=== PATIENT | male | born 2000 | race Caucasian/White ===

== ENCOUNTER 2020-06-15 14:35 | Outpatient (REF) | payer OTHER, SELFPAY ==
[2020-06-15 15:06] LABS: MANUAL DIFF FLAG NO
[2020-06-15 15:15] LABS: Basophils Percent Auto 0.3 % (0-2); Eosinophils Absolute Auto 0.1 X10*3/uL (0.0-0.4); Eosinophils Percent Auto 1.3 % (0-4); Hematocrit 29.4 % (42-52); Hemoglobin 7.8 g/dl (14.0-18.0); Imm Gran Abs Auto 0.04 X10*3/uL (0.00-0.03); Imm Gran Pct Auto 0.4 % (0.0-0.4); Lymphocytes Absolute Auto 2.5 X10*3/uL (1.2-4.9); Lymphocytes Percent Auto 26.1 % (20-40); Mean Corpuscular HGB Conc 26.5 g/dl (31.0-36.0); Mean Corpuscular Hemoglobin 18.8 pg (27.0-33.0); Mean Platelet Volume 9.7 fL (9.4-12.4); Monocytes Absolute Auto 0.8 X10*3/uL (0.1-1.2); Monocytes Percent Auto 8.2 % (2-11); Neutrophils Absolute Auto 6.1 X10*3/uL (2.0-8.3); Neutrophils Percent Auto 63.7 % (45-73); Platelet Count 404 X10*3/uL (160-400); Red Blood Count 4.14 X10*6/uL (4.60-5.80); Red Cell Distribution Width 20.4 % (11.0-16.0); White Blood Count 9.5 X10*3/uL (4.8-10.8)
[2020-06-15 15:51] LABS: Alanine Aminotransferase 20 U/L (0-40); Albumin Level 4.1 g/dL (3.5-5.0); Alkaline Phosphatase 99 U/L (39-117); Anion Gap 11 (12-20); Aspartate Amino Transferase 16 U/L (5-37); Bilirubin Total 0.5 mg/dL (0.0-1.0); Blood Urea Nitrogen 7 mg/dL (9-16); C Reactive Protein 0.58 mg/dL (< or = 0.50); Calcium 9.2 mg/dL (8.4-10.2); Carbon Dioxide 26 mmol/L (22-29); Chloride 108 mmol/L (96-108); Estimated Glomerular Filt Rate > 60; Glucose Random 92 mg/dL (60-115); Potassium 4.4 mmol/L (3.3-5.1); Sodium 141 mmol/L (135-145); Total Protein 7.2 g/dL (6.5-8.0)
[2020-06-15 16:17] LABS: Erythrocyte Sedimentation Rate 14 MM/HR (0-15)
[2020-06-15 16:19] LABS: Vitamin B12 615 pg/mL (200-900)
[2020-06-15 16:20] LABS: Vitamin D 25-OH Total 18.4 ng/mL (>30)
[2020-06-15 16:47] LABS: Folate 7.9 ng/mL (> or = 4.0)
[2020-06-15 16:56] LABS: Ferritin < 1 ng/mL (20-250)
[2020-06-16 04:29] LABS: HBc Num1 0.09 S/CO (0.00-0.79); Hepatitis B Core Antibody Nonreactive (Nonreactive); ~HepC Num1 0.07 S/CO (0.00-0.79); ~Hepatitis C Antibody Nonreactive (Nonreactive)
[2020-06-16 04:40] LABS: HBS Num1 1.02 mIU/mL (0-7.99); HBsAGNum1 0.31 S/CO (0.00-0.99); Hepatitis B Surface Antigen Negative (Negative); ~Hepatitis B Surface Antibody NONREACTIVE (Nonreactive)
[2020-06-17 08:20] LABS: Hepatitis A Antibody IgM 0.26 Index (0-0.79); ~Hepatitis A Antibody IgM Nonreactive (Nonreactive)
[2020-06-18 00:07] LABS: TS Negative Control Passed; TS Panel A 1; TS Panel B 0; TS Positive Control Passed; TSpotTB Negative (SeeBelow)
[2020-06-18 12:32] LABS: Vitamin B6 5.3 ng/mL (2.1-21.7)
[2020-06-18 18:32] LABS: Vitamin C 0.7 mg/dL (0.2-2.1)
[2020-06-19 11:41] LABS: Nicotinamide <20 ng/mL; Vit B3 - Nicotinic Acid <20 ng/mL
[2020-06-19 16:57] LABS: Alpha-Tocopherol 12.3 mg/L (5.7-19.9); Beta-Gamma Tocopherol 2.8 mg/L (<=4.3)
[2020-06-19 23:48] LABS: Vitamin A 30 mcg/dL (26-72)
[2020-06-20 16:37] LABS: Vitamin B5 (Pantothenic Acid) <40 ng/mL (<275)
== END 2020-06-15 14:36 | disposition home or self-care (01) ==
LOC: HO.LAB 14:35
PROVIDERS: Visit Provider Internal Medicine Gastroenterology
DX: K52.9 Noninfective gastroenteritis and colitis, unspecified (principal)
CPT/HCPCS: 36415; 80053; 82180; 82306; 82607; 82728; 82746; 84207; 84446; 84590; 84591; 85025; 85652; 86140; 86481; 86704; 86706; 86709; 86803; 87340

== ENCOUNTER 2020-06-17 14:03 | Outpatient (REF) | payer OTHER, SELFPAY | END 2020-06-17 14:04 | disposition home or self-care (01) | LOC: HO.MDS 14:03 | PROVIDERS: Visit Provider Internal Medicine Gastroenterology | DX: D50.9 Iron deficiency anemia, unspecified (principal) | CPT/HCPCS: 96365; 96375; J2916 ==

== ENCOUNTER 2020-06-22 13:46 | Outpatient (REF) | payer OTHER, SELFPAY | END 2020-06-22 13:47 | disposition home or self-care (01) | LOC: HO.MDS 13:46 | PROVIDERS: Visit Provider Internal Medicine Gastroenterology | DX: D50.9 Iron deficiency anemia, unspecified (principal) | CPT/HCPCS: 96365; 96375; J2916 ==

== ENCOUNTER 2020-06-29 13:30 | Outpatient (REF) | payer OTHER, SELFPAY | END 2020-06-29 15:50 | disposition home or self-care (01) | LOC: HO.MDS 13:30 | PROVIDERS: Visit Provider Internal Medicine Gastroenterology | DX: D50.9 Iron deficiency anemia, unspecified (principal) | CPT/HCPCS: 96365; J2916; Q0163 ==

== ENCOUNTER 2020-07-06 12:27 | Outpatient (REF) | payer OTHER, SELFPAY ==
[2020-07-06 13:33] LABS: MANUAL DIFF FLAG NO
[2020-07-06 13:52] LABS: Basophils Percent Auto 0.5 % (0-2); C Reactive Protein 0.15 mg/dL (< or = 0.50); Eosinophils Absolute Auto 0.2 X10*3/uL (0.0-0.4); Eosinophils Percent Auto 2.1 % (0-4); Hematocrit 38.7 % (42-52); Hemoglobin 10.5 g/dl (14.0-18.0); Imm Gran Abs Auto 0.02 X10*3/uL (0.00-0.03); Imm Gran Pct Auto 0.3 % (0.0-0.4); Lymphocytes Percent Auto 26.3 % (20-40); Mean Corpuscular HGB Conc 27.1 g/dl (31.0-36.0); Mean Corpuscular Hemoglobin 21.3 pg (27.0-33.0); Mean Corpuscular Volume 78.5 fL (80-98); Mean Platelet Volume 10.2 fL (9.4-12.4); Monocytes Absolute Auto 0.7 X10*3/uL (0.1-1.2); Monocytes Percent Auto 9.2 % (2-11); Neutrophils Absolute Auto 4.7 X10*3/uL (2.0-8.3); Neutrophils Percent Auto 61.6 % (45-73); Platelet Count 395 X10*3/uL (160-400); Red Blood Count 4.93 X10*6/uL (4.60-5.80); Red Cell Distribution Width 26.7 % (11.0-16.0); White Blood Count 7.6 X10*3/uL (4.8-10.8)
[2020-07-06 14:16] LABS: Ferritin 87 ng/mL (20-250)
== END 2020-07-06 12:28 | disposition home or self-care (01) ==
LOC: HO.LAB 12:27
PROVIDERS: Visit Provider Internal Medicine Gastroenterology
DX: K52.9 Noninfective gastroenteritis and colitis, unspecified (principal)
CPT/HCPCS: 36415; 82728; 85025; 86140

== ENCOUNTER 2020-07-20 15:40 | Outpatient (REF) | payer OTHER, SELFPAY | END 2020-07-20 15:41 | disposition home or self-care (01) | LOC: HO.MDS 15:40 | PROVIDERS: Visit Provider Internal Medicine Gastroenterology | DX: D50.9 Iron deficiency anemia, unspecified (principal) | CPT/HCPCS: 96365; J2916 ==

== ENCOUNTER 2020-08-03 14:14 | Outpatient (REF) | payer OTHER, SELFPAY | END 2020-08-03 14:15 | disposition home or self-care (01) | LOC: HO.MDS 14:14 | PROVIDERS: Visit Provider Internal Medicine Gastroenterology | DX: D50.9 Iron deficiency anemia, unspecified (principal) | CPT/HCPCS: 96365; J2916 ==

== ENCOUNTER 2020-11-25 14:10 | Outpatient (REF) | payer OTHER, SELFPAY ==
[2020-11-25 14:45] LABS: Hematocrit 37.2 % (42-52); Hemoglobin 11.5 g/dl (14.0-18.0); Mean Corpuscular HGB Conc 30.9 g/dl (31.0-36.0); Mean Corpuscular Hemoglobin 24.8 pg (27.0-33.0); Mean Corpuscular Volume 80.2 fL (80-98); Mean Platelet Volume 10.6 fL (9.4-12.4); Platelet Count 356 X10*3/uL (160-400); Red Blood Count 4.64 X10*6/uL (4.60-5.80)
[2020-11-29 11:41] LABS: Testosterone, Total 18 ng/dL (250-1100)
== END 2020-11-25 14:11 | disposition home or self-care (01) ==
LOC: HO.LAB 14:10
PROVIDERS: Visit Provider Internal Medicine Endocrinology, Diabetes & Metabolism
DX: E29.1 Testicular hypofunction (principal); D64.9 Anemia, unspecified
CPT/HCPCS: 36415; 84403; 85027

== ENCOUNTER 2021-09-22 16:58 | Outpatient (REF) | payer OTHER, SELFPAY ==
[2021-09-22 17:51] LABS: Hematocrit 26.3 % (42.0-52.0); Mean Corpuscular HGB Conc 25.1 g/dl (31.0-36.0); Mean Corpuscular Hemoglobin 16.3 pg (27.0-33.0); Mean Platelet Volume 9.9 fL (9.4-12.4); Platelet Count 428 X10*3/uL (160-400); Red Blood Count 4.05 X10*6/uL (4.60-5.80); Red Cell Distribution Width 19.8 % (11.0-16.0); White Blood Count 9.7 X10*3/uL (4.8-10.8)
[2021-09-22 18:24] LABS: Thyroid Stimulating Hormone 0.75 uIU/mL (0.32-4.0)
[2021-09-22 18:50] LABS: Hemoglobin 6.6 g/dl (14.0-18.0); Mean Corpuscular Volume 64.9 fL (80.0-98.0)
[2021-09-28 02:22] LABS: Testosterone, Free 244.4 pg/mL (35.0-155.0); Testosterone, Total 902 ng/dL (250-1100)
== END 2021-09-22 16:59 | disposition home or self-care (01) ==
LOC: HO.LAB 16:58
PROVIDERS: Visit Provider Internal Medicine Endocrinology, Diabetes & Metabolism
DX: E29.1 Testicular hypofunction (principal)
CPT/HCPCS: 36415; 84402; 84403; 84443; 85027

== ENCOUNTER 2021-09-27 14:12 | Emergency (ER) | payer OTHER, SELFPAY ==
[2021-09-27] VITALS (10 sets, daily range): BP systolic 131–156; BP diastolic 54–93; PULSE 88–104; RESP 15–19; TEMP 36.9–37.2; O2SAT 98–100; BMI 28.1
--- NOTE | ~2021-09-27 | CT_ITS ---
EXAMINATION: CT ABDOMEN AND PELVIS WITHOUT CONTRAST CLINICAL INFORMATION: GI bleed COMPARISON: None TECHNIQUE: Multidetector volumetric imaging was performed from the superior aspect of the liver through the pubic symphysis. Sagittal and coronal reformatted images were obtained on the technologist's workstation. This CT examination was performed using dose optimization techniques as appropriate, variously including the following: *Automated exposure control *Adjustment of mA and/or kV according to patient size (this includes techniques or standardized protocols for targeted exams where dose is matched to indication/reason for exam; i.e. extremities or head) *Use of iterative reconstruction technique DLP: 627 mGy-cm FINDINGS: LUNG BASES: The visualized lung bases are unremarkable. LIVER, GALLBLADDER, AND BILIARY TREE: The liver is normal in size, shape, and attenuation. No focal hepatic lesion or biliary ductal dilatation is present. The gallbladder is contracted with no evidence of radiopaque gallstones, gallbladder wall thickening, or obvious pericholecystic inflammatory changes. PANCREAS: Unremarkable. SPLEEN: Unremarkable. ADRENAL GLANDS: Unremarkable. KIDNEYS AND URETERS: The kidneys are normal in size, shape, and attenuation. No hydronephrosis, hydroureter, or calculi seen. No perinephric stranding. BLADDER: Unremarkable. GASTROINTESTINAL TRACT: The stomach is unremarkable. Normal caliber of the small bowel. No obstruction. Mild wall thickening throughout the colon is noted, greatest at the descending colon. No significant adjacent inflammation. Prominent lymph nodes are seen throughout the mesentery. ABDOMINAL WALL: No significant hernia is appreciated. LYMPH NODES: No retroperitoneal lymphadenopathy. Prominent mesenteric lymph nodes throughout. VASCULAR: Unremarkable. PELVIC VISCERA: The prostate and seminal vesicles are unremarkable. OSSEOUS STRUCTURES: No acute or suspicious osseous abnormality. CT/CT abdomen pelvis wo con IMPRESSION: Colonic wall thickening noted fairly diffusely but greatest at the descending colon. This is suggestive of colitis, with prominent mesenteric lymph nodes seen throughout. This could be infectious or inflammatory. Fleischner guidelines were followed.
[2021-09-27 17:10] LABS: Basophils Absolute Auto 0.1 X10*3/uL (0.0-0.2); Basophils Percent Auto 0.6 % (0-2); Eosinophils Absolute Auto 0.5 X10*3/uL (0.0-0.4); Hematocrit 25.1 % (42.0-52.0); Imm Gran Abs Auto 0.03 X10*3/uL (0.00-0.03); Imm Gran Pct Auto 0.3 % (0.0-0.4); Lymphocytes Absolute Auto 1.8 X10*3/uL (1.2-4.9); Mean Corpuscular HGB Conc 24.7 g/dl (31.0-36.0); Mean Platelet Volume 9.3 fL (9.4-12.4); Monocytes Absolute Auto 1.1 X10*3/uL (0.1-1.2); Monocytes Percent Auto 12.3 % (2-11); Neutrophils Absolute Auto 5.5 x10*3/uL (2.0-8.3); Neutrophils Percent Auto 61.8 % (45-73); Platelet Count 405 X10*3/uL (160-400); Red Blood Count 3.87 X10*6/uL (4.60-5.80); Red Cell Distribution Width 19.6 % (11.0-16.0)
[2021-09-27 17:11] LABS: MANUAL DIFF FLAG NO
[2021-09-27 17:20] LABS: Mean Corpuscular Volume 64.9 fL (80.0-98.0)
[2021-09-27 17:23] LABS: Hemoglobin 6.2 g/dl (14.0-18.0)
[2021-09-27 17:32] LABS: COVID-19 Test Negative (Negative); IDNOW Serial# 16C4AD1C
[2021-09-27 17:35] LABS: Alanine Aminotransferase 9 U/L (0-40); Albumin Level 4.3 g/dL (3.5-5.0); Alkaline Phosphatase 93 U/L (39-117); Anion Gap 14 (12-20); Aspartate Amino Transferase 12 U/L (5-37); Bilirubin Total 0.3 mg/dL (0.0-1.0); Blood Urea Nitrogen 7 mg/dL (9-16); Calcium 9.1 mg/dL (8.4-10.2); Carbon Dioxide 24 mmol/L (22-29); Chloride 106 mmol/L (96-108); Creatinine Clr Calc Pharmacy 128.4; Estimated Glomerular Filt Rate > 60; Glucose Random 103 mg/dL (60-115); Potassium 4.3 mmol/L (3.3-5.1); Sodium 140 mmol/L (135-145); Total Protein 7.4 g/dL (6.5-8.0)
--- NOTE | 2021-09-27 17:55 | PC.NURSE ---
pt not in wr again when called. he had left the ed several times prior to triage.
--- NOTE | 2021-09-27 18:13 | ED.RECABL ---
HPI - Recheck/Abnormal Lab/Rx General Chief Complaint: Recheck/Abnormal Lab/Rx Stated Complaint: blood transfusion Time Seen by Provider: 09/28/21 01:22 Source: patient Mode of arrival: ambulatory Limitations: no limitations History of Present Illness HPI narrative: 21-year-old male with past medical history of anemia with iron infusions, and ulcerative colitis presents with H&H is 6.2/25.1. He presents from Dr. Morfin' office with instructions from Dr. Fritz for 2 units of packed red blood cells and CT of abdomen with oral contrast. Patient is pale, states he gets short of breath when walking up stairs, but otherwise feels fine. complaint: abnormal lab Initial visit for: other (Anemia) Returns today for: called because of abnormal lab/test Symptoms since prior visit: no new symptoms Context: called for abnormal lab result Associated symptoms: shortness of breath (On exertion) Related Data Home Medications Medication Instructions Recorded Confirmed testosterone cypionate 200 mg/mL 200 mg IM Q3W 09/27/21 intramuscular oil Previous Rx's Medication Instructions Recorded Apriso 0.375 gram capsule,extended 1.5 g PO QAM #112 caps 09/22/21 release (mesalamine) Allergies Allergy/AdvReac Type Severity Reaction Status Date / Time peas Allergy Mild hives Uncoded 09/27/21 13:54 Review of Systems Review of Systems: Constitutional: No Fever, No Chills, pallor ENT/Mouth: No Ear Pain, No Hoarseness, No sore throat Eyes: No Eye Pain, No Swelling, No Redness, No Foreign Body Cardiovascular: No Chest Pain, positive SOB on exertion Respiratory: No Cough, No Dyspnea Gastrointestinal: No Nausea, No Vomiting, No Diarrhea, No abdominal Pain Genitourinary: No Dysuria, No Hematuria Musculoskeletal: No joint pain, No Myalgias, No Joint Swelling Skin: No Skin lacerations, No rash Neuro: No Weakness, No Numbness, No Paresthesias, No Loss of Consciousness, No Dizziness, No Headache Psych: No Anxiety/Panic, No Depression Heme/Lymph: no easy bruising, no Lymphadenopathy Endocrine: No Polyuria, No Polydipsia Yes all other systems are reviewed and are negative PMFSH Past Medical History Attestation statement: The following information was validated with the patient. Source: old records reviewed Family History Family History Father HTN (hypertension) Social History Social History Alcohol intake: current Alcohol intake frequency: holidays/special occasions only Patient Tobacco Use Status: Never used Tobacco Smoked in Last 30 Days: No Use of substances other than those prescribed or required for medical reasons: No Advance Directives: No Advance Directives Information Provided: No Physical Exam Vital Signs: Vital Signs: Last Vital Signs Temp 99.3 F 09/28/21 00:47 Pulse 95 09/28/21 00:47 Resp 26 H 09/28/21 00:47 BP 131/60 09/28/21 00:47 Pulse Ox 98 09/28/21 00:47 O2 Del Method 09/28/21 00:47 BMI result Body Mass Index 28.1 Appearance: Alert. Oriented X3. No acute distress. Pallor. Eyes: Pupils equal, round and reactive to light. Sclera nonicteric. Pallor. ENT: Pharynx normal. Neck: Normal inspection. Neck supple. CVS: Tachycardic heart rate and rhythm. Apical pulses of the pulses to extremities. Respiratory: No respiratory distress. Breath sounds normal. Abdomen: Soft and nontender. Skin: Skin warm and dry. Normal skin color. Normal skin turgor. Extremities: No lower extremity edema. Gait well-balanced well coordinated. Neuro: No motor deficit. No sensory deficit. Cranial nerves 2-12 intact. Course Course Course Narrative: 21-year-old male presents with history of colitis, anemia with IV infusions, presents from Dr. Fritz is a office for H&H of .04/23.. Patient has a history of ulcerative colitis, has close follow-up with Gastroenterology. Dr. Fritz contacted this emergency department to update provider that he would like CT abdomen with p.o. contrast and 2 units packed red blood. At the time of presentation, patient is alert oriented x4, pale, tachycardic, stable with a blood pressure 156/78, pulse is 100, respiration 18 even and unlabored, temperature 98.9 degrees, and clear lung sounds with 99% on room air. Will follow with Gastroenterology's plan. Blood consent signed by patient with this [facility]. Order for 2 units complete. 20:00 patient has not received blood yet. Patient removed his blood band which delayed the process. Multiple discussions with RN and patient regarding plan of care. 21:03 CT scan complete. Minimal amounts of p.o. oral contrast ingested by the patient. 00:54 2nd unit infusing. Patient has no complaints at this time. Alert oriented x4. Even unlabored respirations. Afebrile. CT scan indicates colitis suspected to be infectious versus inflammatory. Based on patient's past medical history, consult with Dr. Fritz, I feel this is more inflammatory. Antibiotics not indicated at this time. 01:27 transfusion complete. No indication of adverse reaction. Patient discharged home. Verbalized understanding of signs and symptoms indicating need for emergent intervention. MDM - Recheck/Abnormal Lab/Rx MDM Narrative Medical decision making narrative: Anemia Medical Records Attestation: I reviewed the patient's medical records. Lab Data Attestation: I reviewed the patient's lab results. Result diagrams: 09/27/21 17:05 09/27/21 17:05 Labs: Lab Results 09/27/21 09/27/21 09/27/21 Range/Units 17:05 17:05 17:05 WBC 9.0 (4.8-10.8) X10*3/uL RBC 3.87 L (4.60-5.80) X10*6/uL Hgb 6.2 L* (14.0-18.0) g/dl Hct 25.1 L (42.0-52.0) % MCV 64.9 L (80.0-98.0) fL MCH 16.0 L (27.0-33.0) pg MCHC 24.7 L (31.0-36.0) g/dl RDW 19.6 H (11.0-16.0) % Plt Count 405 H (160-400) X10*3/uL MPV 9.3 L (9.4-12.4) fL Immature Gran % (Auto) 0.3 (0.0-0.4) % Neut % (Auto) 61.8 (45-73) % Lymph % (Auto) 20.0 (20-40) % [place] % (Auto) 12.3 H (2-11) % Eos % (Auto) 5.0 H (0-4) % Baso % (Auto) 0.6 (0-2) % Lymph # (Auto) 1.8 (1.2-4.9) X10*3/uL [place] # (Auto) 1.1 (0.1-1.2) X10*3/uL Eos # (Auto) 0.5 H (0.0-0.4) X10*3/uL Baso # (Auto) 0.1 (0.0-0.2) X10*3/uL Abs Immat Gran (auto) 0.03 (0.00-0.03) X10*3/uL Absolute Neuts (auto) 5.5 (2.0-8.3) x10*3/uL Absolute Nucleated RBC 0.000 (0.0-0.012) X10*3/uL Nucleated RBC % (auto) 0.0 (0.0-0.2) /100WBC Sodium 140 (135-145) mmol/L Potassium 4.3 (3.3-5.1) mmol/L Chloride 106 (96-108) mmol/L Carbon Dioxide 24 (22-29) mmol/L Anion Gap 14 (12-20) BUN 7 L (9-16) mg/dL Creatinine 0.96 (0.5-1.4) mg/dL Estim Creat Clear Calc 128.4 Estimated GFR > 60 Random Glucose 103 (60-115) mg/dL Calcium 9.1 (8.4-10.2) mg/dL Total Bilirubin 0.3 (0.0-1.0) mg/dL AST 12 (5-37) U/L ALT 9 (0-40) U/L Alkaline Phosphatase 93 (39-117) U/L Total Protein 7.4 (6.5-8.0) g/dL Albumin 4.3 (3.5-5.0) g/dL COVID-19 (CAROLINE) Negative (Negative) COVID-19 Clin Com See Note Blood Type Antibody Screen Crossmatch 09/27/21 09/27/21 Range/Units 17:05 20:21 WBC (4.8-10.8) X10*3/uL RBC (4.60-5.80) X10*6/uL Hgb (14.0-18.0) g/dl Hct (42.0-52.0) % MCV (80.0-98.0) fL MCH (27.0-33.0) pg MCHC (31.0-36.0) g/dl RDW (11.0-16.0) % Plt Count (160-400) X10*3/uL MPV (9.4-12.4) fL Immature Gran % (Auto) (0.0-0.4) % Neut % (Auto) (45-73) % Lymph % (Auto) (20-40) % [place] % (Auto) (2-11) % Eos % (Auto) (0-4) % Baso % (Auto) (0-2) % Lymph # (Auto) (1.2-4.9) X10*3/uL [place] # (Auto) (0.1-1.2) X10*3/uL Eos # (Auto) (0.0-0.4) X10*3/uL Baso # (Auto) (0.0-0.2) X10*3/uL Abs Immat Gran (auto) (0.00-0.03) X10*3/uL Absolute Neuts (auto) (2.0-8.3) x10*3/uL Absolute Nucleated RBC (0.0-0.012) X10*3/uL Nucleated RBC % (auto) (0.0-0.2) /100WBC Sodium (135-145) mmol/L Potassium (3.3-5.1) mmol/L Chloride (96-108) mmol/L Carbon Dioxide (22-29) mmol/L Anion Gap (12-20) BUN (9-16) mg/dL Creatinine (0.5-1.4) mg/dL Estim Creat Clear Calc Estimated GFR Random Glucose (60-115) mg/dL Calcium (8.4-10.2) mg/dL Total Bilirubin (0.0-1.0) mg/dL AST (5-37) U/L ALT (0-40) U/L Alkaline Phosphatase (39-117) U/L Total Protein (6.5-8.0) g/dL Albumin (3.5-5.0) g/dL COVID-19 (CAROLINE) (Negative) COVID-19 Clin Com Blood Type A Positive A Positive Antibody Screen NEGATIVE NEGATIVE Crossmatch See Detail See Detail Imaging Data CT scan - abdomen: Attestation: I personally reviewed and interpreted this imaging study as follows: Radiologist's impression: FINDINGS: LUNG BASES: The visualized lung bases are unremarkable.? LIVER, GALLBLADDER, AND BILIARY TREE: The liver is normal in size, shape, and attenuation. No focal hepatic lesion or biliary ductal dilatation is present. The gallbladder is contracted with no evidence of radiopaque gallstones, gallbladder wall thickening, or obvious pericholecystic inflammatory changes.? PANCREAS: Unremarkable.? SPLEEN: Unremarkable.? ADRENAL GLANDS: Unremarkable.? KIDNEYS AND URETERS: The kidneys are normal in size, shape, and attenuation. No hydronephrosis, hydroureter, or calculi seen. No perinephric stranding. ? BLADDER: Unremarkable.? GASTROINTESTINAL TRACT: The stomach is unremarkable. Normal caliber of the small bowel. No obstruction. Mild wall thickening throughout the colon is noted, greatest at the descending colon. No significant adjacent inflammation. Prominent lymph nodes are seen throughout the mesentery.? ABDOMINAL WALL: No significant hernia is appreciated.? LYMPH NODES: No retroperitoneal lymphadenopathy. Prominent mesenteric lymph nodes throughout. VASCULAR: Unremarkable. PELVIC VISCERA: The prostate and seminal vesicles are unremarkable.? OSSEOUS STRUCTURES: No acute or suspicious osseous abnormality.? CT/CT abdomen pelvis wo con IMPRESSION: Colonic wall thickening noted fairly diffusely but greatest at the descending colon. This is suggestive of colitis, with prominent mesenteric lymph nodes seen throughout. This could be infectious or inflammatory.? ? Fleischner guidelines were followed. Discharge Plan Discharge Clinical Impression: Ulcerative colitis, Anemia, Encounter for blood transfusion Patient Disposition: Home, Self-Care Instructions: Ulcerative Colitis (ED), Blood Transfusion Reactions (ED), Anemia (ED), Colitis (ED), Blood Transfusion (DC) Additional Instructions: You were evaluated for anemia and colitis. We gave you 2 units of packed red blood cells, CT scan of abdomen and pelvis indicates diffuse colitis. Please follow-up with Dr. Fritz tomorrow. If you notice any signs or symptoms that are described in the blood transfusion reaction discharge instructions, please return to the emergency department immediately for evaluation. Thank you for choosing this emergency department for evaluation. Please follow-up with primary care physician as needed. Return to the emergency department for any new, concerning, or worsening symptoms. Prescriptions: No Action mesalamine [Apriso] 0.375 gram capsule,extended release 24hr 1.5 g PO QAM Qty: 112 0RF testosterone cypionate 200 mg/mL oil 200 mg IM Q3W Referrals: Ling Fritz MD [Physician] - 1 day (Colitis, anemia)
--- NOTE | 2021-09-27 19:14 | PC.NURSE ---
IV #20 placed in left AC without complications noted.
--- NOTE | 2021-09-27 20:35 | PC.NURSE ---
When I took over care of the pt at 1900, I was told in report that pt type and screen has been done and pt will likely get blood in ED. Type and screen came back but blood was not ready. I was given a pink top tube for the second type around 1999. When I went to draw the second type, pt did not have a blood bank wrist band on. I called blood bank and was instructed to get a new type and screen. Sent new type and screen to lab and provider made aware.
--- NOTE | 2021-09-27 20:41 | PC.NURSE ---
this rn also talked with the pt reguarding the pt wanting to LMA before receiving blood products for a low HH. pt skin is pale, pt is alert and oriented, states his ride is waiting and he has been here all day and is waiting to go back to [facility]. provider made aware as well as Angely MCGOVERN.
[2021-09-27] MEDS: Diatrizoate Meglumine, Sodium 30 ML SOLUTION PO (21:25)
--- NOTE | 2021-09-27 21:32 | PC.NURSE ---
Pt pulled his own IV out, bleeding controlled. New IV inserted for blood admiistration.
--- NOTE | 2021-09-27 22:10 | PC.NURSE ---
pt resting comfortably, no s/s of reaction noted. call paulino at pt side, pt has a visitor at the bedside which is his partner and ride back to [place].
[2021-09-28] VITALS: RESP 18; O2SAT 100
--- NOTE | 2021-09-28 00:05 | PC.NURSE ---
pt tolerating 2nd unit of blood procucts, no sob sat improved to 100% and hr is now nrs, no s/s of reac tion noted. pt facial tone has improved to pink warm and dry. lips are back to baseline redness.
[2021-09-28 00:47] VITALS: BP 131/60; PULSE 95; RESP 26; TEMP 37.4; O2SAT 98
== END 2021-09-28 01:37 | disposition home or self-care (01) ==
PROVIDERS: Emergency Provider Internal Medicine
DX: K51.90 Ulcerative colitis, unspecified, without complications (principal); D64.9 Anemia, unspecified; R79.89 Other specified abnormal findings of blood chemistry; R10.9 Unspecified abdominal pain; Z20.822 Contact with and (suspected) exposure to COVID-19; Z79.899 Other long term (current) drug therapy
CPT/HCPCS: 36430; 74176; 80053; 85025; 86850; 86900; 86901; 86923; 87635; 99284; 99285; P9016

== ENCOUNTER 2021-11-23 | Outpatient (REF) | payer OTHER, SELFPAY ==
[2021-11-23 14:38] LABS: MANUAL DIFF FLAG NO
[2021-11-23 14:59] LABS: Basophils Absolute Auto 0.1 X10*3/uL (0.0-0.2); Basophils Percent Auto 0.5 % (0-2); Eosinophils Absolute Auto 0.3 X10*3/uL (0.0-0.4); Eosinophils Percent Auto 2.1 % (0-4); Hematocrit 26.1 % (42.0-52.0); Imm Gran Abs Auto 0.07 X10*3/uL (0.00-0.03); Imm Gran Pct Auto 0.5 % (0.0-0.4); Lymphocytes Absolute Auto 1.8 X10*3/uL (1.2-4.9); Lymphocytes Percent Auto 12.9 % (20-40); Mean Corpuscular HGB Conc 25.7 g/dl (31.0-36.0); Mean Corpuscular Hemoglobin 17.2 pg (27.0-33.0); Mean Corpuscular Volume 66.9 fL (80.0-98.0); Mean Platelet Volume 9.9 fL (9.4-12.4); Monocytes Percent Auto 7.2 % (2-11); Neutrophils Absolute Auto 10.9 x10*3/uL (2.0-8.3); Neutrophils Percent Auto 76.8 % (45-73); Platelet Count 428 X10*3/uL (160-400); Red Cell Distribution Width 19.6 % (11.0-16.0); White Blood Count 14.2 X10*3/uL (4.8-10.8)
[2021-11-23 15:09] LABS: Hemoglobin 6.7 g/dl (14.0-18.0)
[2021-11-23 15:34] LABS: Alanine Aminotransferase 16 U/L (0-40); Albumin Level 4.2 g/dL (3.5-5.0); Alkaline Phosphatase 93 U/L (39-117); Anion Gap 17 (12-20); Aspartate Amino Transferase 15 U/L (5-37); Bilirubin Total 0.3 mg/dL (0.0-1.0); Blood Urea Nitrogen 7 mg/dL (9-16); C Reactive Protein 1.16 mg/dL (< or = 0.50); Calcium 9.1 mg/dL (8.4-10.2); Carbon Dioxide 23 mmol/L (22-29); Chloride 107 mmol/L (96-108); Estimated Glomerular Filt Rate > 60; Glucose Random 88 mg/dL (60-115); Potassium 4.5 mmol/L (3.3-5.1); Sodium 142 mmol/L (135-145); Total Protein 7.1 g/dL (6.5-8.0)
[2021-11-26 10:11] LABS: TS Negative Control Passed; TS Panel A 1; TS Panel B 1; TS Positive Control Passed; TSpotTB Negative (Negative)
== END 2021-11-23 00:01 | disposition home or self-care (01) ==
LOC: HO.LNP
PROVIDERS: Visit Provider Internal Medicine Gastroenterology
DX: Z11.1 Encounter for screening for respiratory tuberculosis (principal); K52.9 Noninfective gastroenteritis and colitis, unspecified
CPT/HCPCS: 36415; 80053; 85025; 86140; 86481

== ENCOUNTER → 2021-11-23 14:07 | Outpatient (BNVA) | payer OTHER, SELFPAY | PROVIDERS: Visit Provider Internal Medicine Gastroenterology | DX: Z23 Encounter for immunization (principal); K52.9 Noninfective gastroenteritis and colitis, unspecified | CPT/HCPCS: 36415; 80053; 85025; 90471; 90472; 90632; 90746 ==

== ENCOUNTER 2021-11-30 13:41 | Inpatient (IN) | payer OTHER, SELFPAY ==
--- NOTE | ~2021-11-30 | CT_ITS ---
EXAMINATION: CT ABDOMEN AND PELVIS WITH CONTRAST CLINICAL INFORMATION: Worsening colitis COMPARISON: 09/27/2021 TECHNIQUE: Multidetector volumetric images were obtained from the superior aspect of the liver through the pubic symphysis following administration 85 mL of Omnipaque 350 intravenous contrast. Sagittal and coronal reformatted images were obtained on the technologist's workstation. Oral contrast: No This CT examination was performed using dose optimization techniques as appropriate, variously including the following: *Automated exposure control *Adjustment of mA and/or kV according to patient size (this includes techniques or standardized protocols for targeted exams where dose is matched to indication/reason for exam; i.e. extremities or head) *Use of iterative reconstruction technique DLP: 603 mGy-cm FINDINGS: LUNG BASES: The visualized lung bases are unremarkable. LIVER, GALLBLADDER, AND BILIARY TREE: The liver is normal in size, shape, and attenuation. No focal hepatic lesion or biliary ductal dilatation is present. The gallbladder is unremarkable with no evidence of radiopaque gallstones, gallbladder wall thickening, or obvious pericholecystic inflammatory changes. PANCREAS: Unremarkable. SPLEEN: The spleen is mildly enlarged, measuring approximately 14 cm in length. ADRENAL GLANDS: Unremarkable. KIDNEYS AND URETERS: Bilateral nephrograms are symmetric. No hydronephrosis or obstructing calculus identified. BLADDER: Unremarkable. GASTROINTESTINAL TRACT: No evidence of bowel obstruction. There is mild mural prominence throughout much of the colon, though overall this appears mildly decreased compared to prior. The appendix is unremarkable. No free fluid or free air is seen. ABDOMINAL WALL: No significant hernia is appreciated. LYMPH NODES: Scattered mesenteric and retroperitoneal subcentimeter lymph nodes are present, prominent in number though without significant enlargement by size criteria; this appearance is similar to prior. VASCULAR: Unremarkable. PELVIC VISCERA: Unremarkable. OSSEOUS STRUCTURES: Unremarkable. CT/CT abdomen pelvis w IV con IMPRESSION: Mild mural prominence throughout much of the colon, though this wall thickening does appear to be slightly decreased compared to 09/27/2021. No new acute findings identified. Multiple scattered subcentimeter lymph nodes are also similar to prior.
[2021-11-30 14:41] VITALS: BP 149/69; PULSE 88; RESP 18; TEMP 37.1; O2SAT 99; BMI 27.3
[2021-11-30 15:18] LABS: MANUAL DIFF FLAG NO
[2021-11-30 15:22] LABS: Basophils Percent Auto 0.4 % (0-2); Eosinophils Absolute Auto 0.1 X10*3/uL (0.0-0.4); Eosinophils Percent Auto 0.9 % (0-4); Hematocrit 24.3 % (42.0-52.0); Imm Gran Abs Auto 0.05 X10*3/uL (0.00-0.03); Imm Gran Pct Auto 0.5 % (0.0-0.4); Lymphocytes Absolute Auto 1.6 X10*3/uL (1.2-4.9); Lymphocytes Percent Auto 15.1 % (20-40); Mean Corpuscular HGB Conc 25.1 g/dl (31.0-36.0); Mean Corpuscular Hemoglobin 16.4 pg (27.0-33.0); Mean Corpuscular Volume 65.1 fL (80.0-98.0); Mean Platelet Volume 9.5 fL (9.4-12.4); Monocytes Absolute Auto 0.8 X10*3/uL (0.1-1.2); Monocytes Percent Auto 7.6 % (2-11); Neutrophils Absolute Auto 7.9 x10*3/uL (2.0-8.3); Neutrophils Percent Auto 75.5 % (45-73); Platelet Count 492 X10*3/uL (160-400); Red Blood Count 3.73 X10*6/uL (4.60-5.80); Red Cell Distribution Width 19.4 % (11.0-16.0); White Blood Count 10.5 X10*3/uL (4.8-10.8)
[2021-11-30 15:37] LABS: Hemoglobin 6.1 g/dl (14.0-18.0)
[2021-11-30 15:38] LABS: Anion Gap 14 (12-20); Blood Urea Nitrogen 9 mg/dL (9-16); Calcium 9.3 mg/dL (8.4-10.2); Carbon Dioxide 26 mmol/L (22-29); Chloride 105 mmol/L (96-108); Creatinine Clr Calc Pharmacy 120.2; Estimated Glomerular Filt Rate > 60; Glucose Random 102 mg/dL (60-115); Potassium 4.6 mmol/L (3.3-5.1); Sodium 140 mmol/L (135-145)
[2021-11-30 19:56] VITALS: BP 130/78; PULSE 84; RESP 18; TEMP 36.9; O2SAT 99
--- NOTE | 2021-11-30 20:00 | PC.NURSE ---
patient a&ox3, vss, pt awaiting provider, will continue to monitor
--- OUTSIDE RECORDS SUMMARY | 2021-11-30 20:04 | XMS_ITS ---
:2000 Author Care Team Providers Name Role Phone Ashly Stubbs Primary Care Provider Unavailable Allergies Notes: PEAS- Hives Medications No Medications Reported Problems Name Status Onset Date Source ? Noninfectious Gastroenteritis Active 08/27/2001 ? Fever Active 08/27/2001 ? Torsion of Testis Active 02/02/2002 ? Verruca Vulgaris Active 02/07/2002 ? Acute Mucoid Otitis Media Active 10/31/2002 ? Acute Maxillary Sinusitis Active 02/04/2003 ? Procedures None recorded. Results Lab Results None recorded. Past Encounters None recorded. Social History None recorded. Vaccine List Vaccine Type Hep A, ped/adol, 2 dose 12/21/2009 Plan of Care Reminders Provider Appointments None recorded. ? ? Lab None recorded. ? ? Referral None recorded. ? ? Procedures None recorded. ? ? Surgeries None recorded. ? ? Imaging None recorded. ? ? Vitals Height Weight BMI Blood Pressure 52.5 in 66 lbs 16.8 kg/m2 100/62 mm[Hg]
--- NOTE | 2021-11-30 20:10 | ED.RECABL ---
HPI - Recheck/Abnormal Lab/Rx General Chief Complaint: Recheck/Abnormal Lab/Rx Stated Complaint: abnormal lab work Time Seen by Provider: 11/30/21 19:58 Source: patient Mode of arrival: ambulatory Limitations: no limitations History of Present Illness HPI narrative: Patient comes to the emergency room complaining of low hemoglobin. Patient states that he has had blood transfusions in the past. Patient states that he has been diagnosed with ulcerative colitis, he usually does not have wally blood. Patient denies abdominal pain. Patient went a few days ago to see Dr. Fritz for a medication refills and lab work. Today, patient received a phone call because his hemoglobin is low. Related Data Home Medications Medication Instructions Recorded Confirmed testosterone cypionate 200 mg/mL 200 mg IM Q3W 09/27/21 intramuscular oil Previous Rx's Medication Instructions Recorded Apriso 0.375 gram capsule,extended 1.5 g PO QAM #112 caps 10/05/21 release (mesalamine) budesonide 3 mg 9 mg PO DAILY #90 ea 11/16/21 capsule,delayed,extended release Allergies Allergy/AdvReac Type Severity Reaction Status Date / Time peas Allergy Mild hives Uncoded 09/27/21 13:54 Review of Systems Review of Systems: Constitutional : No Weight loss, No Fever, No Chills, No Night Sweats, No Fatigue, No Malaise ENT/Mouth : No Hearing loss, No Ear Pain, No Nasal Congestion, No Sinus Pain, No Hoarseness, No sore throat, No Rhinorrhea, No Swallowing Difficulty Eyes: No Eye Pain, No Swelling, No Redness, No Foreign Body, No Discharge, No Vision Changes Cardiovascular : No Chest Pain, No SOB, No Dyspnea on Exertion, No Orthopnea, No Edema, No Palpitations Respiratory : No Cough, No Sputum, No Wheezing, No Smoke Exposure, No Dyspnea Gastrointestinal : No Nausea, No Vomiting, No Diarrhea, No Constipation, No abdominal Pain, denies rectal bleeding Genitourinary : no irregular bleeding, No Dysuria, No Urinary Frequency, No Hematuria, No Urinary Incontinence, No Urgency, No Flank Pain, No Urinary Flow Changes, No Hesitancy Musculoskeletal : No joint pain, No Myalgias, No Joint Swelling Skin : No Skin Lesions, No rash Neuro : No Weakness, No Numbness, No Paresthesias, No Loss of Consciousness, No Dizziness, No Headache Psych : No Anxiety/Panic, No Depression, No SI/HI/AH/VH, No Social Issues, Heme/Lymph: No Bruising, No Bleeding,No Lymphadenopathy Endocrine : No Polyuria, No Polydipsia, No Temperature Intolerance [facility] Past Medical History Medical History Anemia Ulcerative colitis Family History Family History Father HTN (hypertension) Social History Social History Alcohol intake: current Alcohol intake frequency: holidays/special occasions only Patient Tobacco Use Status: Never used Tobacco Use of substances other than those prescribed or required for medical reasons: No Advance Directives: No Advance Directives Information Provided: No Physical Exam Vital Signs: Vital Signs: Last Vital Signs Temp 98.5 F 11/30/21 19:56 Pulse 84 11/30/21 19:56 Resp 18 11/30/21 19:56 BP 130/78 11/30/21 19:56 Pulse Ox 99 11/30/21 19:56 O2 Del Method 11/30/21 19:56 BMI result Body Mass Index 27.3 Const: Other: Appearance: Alert. Oriented X3. No acute distress. Eyes: Pupils equal, round and reactive to light. ENT: Pharynx normal. Neck: Normal inspection. Neck supple. No lymph nodes noted. No crepitus CVS: Normal heart rate and rhythm. Pulses normal. Normal S1 and S2 Respiratory: No respiratory distress. Breath sounds normal. No Wheezing. No rales Abdomen: Soft and nontender. No rigidity. No distention. Skin: Skin warm and dry. Diffusely pale, Normal skin turgor. Extremities: No lower extremity edema. No Lacerations. No Rash Neuro: Oriented X 3. No motor deficit. No sensory deficit. Moving all extremities. No slurred speech. CN 2 through 12 grossly intact Psych: calm, cooperative, normal affect Course Course Course Narrative: I discussed the patient with Dr. Fritz, patient needs a full workup including CT scan with IV and p.o. contrast. Patient will likely need a colonoscopy. In the emergency room, patient received IV fluids, levofloxacin, metronidazole, Solu-Medrol and Protonix Sepsis is not suspected. Patient a bit upset that he needs to remain NPO at least before the CT scan. Patient's hemoglobin is 6.1. Patient will receive 2 units of blood. Patient is agreeable to receive blood, states that he has had it before. Patient is aware of the risks versus benefits. Patient has signed the consent and is in his chart Patient known to have ulcerative colitis. Perforation is not suspected at this time, patient has no abdominal tenderness, no rectal bleeding. I discussed the patient with Dr. Nolan, patient will be admitted. CT scan pending MDM - Recheck/Abnormal Lab/Rx Lab Data Result diagrams: 11/30/21 15:14 11/30/21 15:14 Labs: Lab Results 11/30/21 11/30/21 Range/Units 15:14 15:14 WBC 10.5 (4.8-10.8) X10*3/uL RBC 3.73 L (4.60-5.80) X10*6/uL Hgb 6.1 L* (14.0-18.0) g/dl Hct 24.3 L (42.0-52.0) % MCV 65.1 L (80.0-98.0) fL MCH 16.4 L (27.0-33.0) pg MCHC 25.1 L (31.0-36.0) g/dl RDW 19.4 H (11.0-16.0) % Plt Count 492 H (160-400) X10*3/uL MPV 9.5 (9.4-12.4) fL Immature Gran % (Auto) 0.5 H (0.0-0.4) % Neut % (Auto) 75.5 H (45-73) % Lymph % (Auto) 15.1 L (20-40) % Yell % (Auto) 7.6 (2-11) % Eos % (Auto) 0.9 (0-4) % Baso % (Auto) 0.4 (0-2) % Lymph # (Auto) 1.6 (1.2-4.9) X10*3/uL Yell # (Auto) 0.8 (0.1-1.2) X10*3/uL Eos # (Auto) 0.1 (0.0-0.4) X10*3/uL Baso # (Auto) 0.0 (0.0-0.2) X10*3/uL Abs Immat Gran (auto) 0.05 H (0.00-0.03) X10*3/uL Absolute Neuts (auto) 7.9 (2.0-8.3) x10*3/uL Absolute Nucleated RBC 0.000 (0.0-0.012) X10*3/uL Nucleated RBC % (auto) 0.0 (0.0-0.2) /100WBC Sodium 140 (135-145) mmol/L Potassium 4.6 (3.3-5.1) mmol/L Chloride 105 (96-108) mmol/L Carbon Dioxide 26 (22-29) mmol/L Anion Gap 14 (12-20) BUN 9 (9-16) mg/dL Creatinine 0.94 (0.5-1.4) mg/dL Estim Creat Clear Calc 120.2 Estimated GFR > 60 Random Glucose 102 (60-115) mg/dL Calcium 9.3 (8.4-10.2) mg/dL Total Bilirubin 0.3 (0.0-1.0) mg/dL Direct Bilirubin < 0.2 (0.0-0.5) mg/dL AST 14 (5-37) U/L ALT 14 (0-40) U/L Alkaline Phosphatase 89 (39-117) U/L C-Reactive Protein 0.46 (< or = 0.50) mg/dL Total Protein 7.1 (6.5-8.0) g/dL Albumin 4.3 (3.5-5.0) g/dL Critical Care Time Critical Care Time Critical Care Time: Yes Total Critical Care Time: 60 Attestation: I have personally provided critical care time. Time includes review of lab data, radiology results, discussion with consultants, and monitoring for potential decompensation. Intervention performed as documented. Discharge Plan Discharge Clinical Impression: Ulcerative colitis Patient Disposition: Admitted As Inpatient
[2021-11-30] MEDS: 0.9 % Sodium Chloride 1,000 ML 999 ML IVCONT ×2 (20:24→20:43)
[2021-11-30] MEDS: Diatrizoate Meglumine, Sodium 30 ML SOLUTION PO (20:25)
[2021-11-30 20:27] LABS: Alanine Aminotransferase 14 U/L (0-40); Albumin Level 4.3 g/dL (3.5-5.0); Alkaline Phosphatase 89 U/L (39-117); Aspartate Amino Transferase 14 U/L (5-37); Bilirubin Direct < 0.2 mg/dL (0.0-0.5); Bilirubin Total 0.3 mg/dL (0.0-1.0); C Reactive Protein 0.46 mg/dL (< or = 0.50); Total Protein 7.1 g/dL (6.5-8.0)
[2021-11-30] MEDS: Pantoprazole Sodium 40 MG/10 ML VIAL IVPUSH (20:33)
[2021-11-30] MEDS: methylPREDNISolone Sod Succ 125 MG/2 ML VIAL IVPUSH (20:33)
--- NOTE | 2021-11-30 21:18 | PHA.MEDREC ---
Pharmacy Consult ? Medication Reconciliation Pharmacy has completed the medication reconciliation.
--- NOTE | 2021-11-30 21:26 | P.HPHOSP_ITS ---
History of Present Illness Date of Service: 11/30/21 Chief Complaint: UC work up /flare This is a 21-year-old male with past medical history of ulcerative colitis sent to the hospital from his GI doctor for workup of possible ulcerative colitis flare. Patient reports that he has been having diarrhea that is non watery, constant, with no evidence of blood. Denies any abdominal pain, he reports that he has been having headaches with no chest pain dizziness, no shortness of breath. Reports no abdominal pain at this time, no nausea or vomiting, no urinary symptoms and no lower extremity edema. GI wanted patient to be admitted for colonoscopy, methylprednisolone, and blood transfusion given his up patient lab workup showed hemoglobin of 6.7. Vitals arrival to the ED stable Today's hemoglobin is 6.1 with hematocrit of 24.3, MCV of 65.1, labs otherwise unremarkable Abdomen pelvic CT shows mild neural prominences throughout much of the colon though this wall thickening does appear to be slightly decreased compared to 09/27 2021. No acute findings otherwise Patient start on methylprednisone and will be admitted for further management Review of Systems Review of Systems: Yes all other systems are reviewed and are negative [facility] Medical History Anemia Ulcerative colitis Family History Father HTN (hypertension) Surgical History No pertinent past surgical history Social History Alcohol intake: current Alcohol intake frequency: holidays/special occasions only Patient Tobacco Use Status: Never used Tobacco Use of substances other than those prescribed or required for medical reasons: No Advance Directives: No Advance Directives Information Provided: No Meds Allergies Allergy/AdvReac Type Severity Reaction Status Date / Time peas Allergy Mild hives Uncoded 09/27/21 13:54 Active Medications: Current Medications Levofloxacin (Levaquin) 500 mg in 100 mls @ 100 mls/hr IV Q24H JACQUI Sodium Chloride (Ns) 1,000 mls @ 999 mls/hr IVCONT .Q1H1M ONE Stop: 11/30/21 21:27 Last Admin: 11/30/21 20:43 Dose: 999 mls/hr Pharmacy Consult (Consult Rx Perform Med Rec) 1 each MISCELLANE ONCE PRN PRN Reason: Consult order Home Medications Medication Instructions Recorded Confirmed Last Taken Type testosterone cypionate 200 mg/mL 200 mg IM Q2W 09/27/21 11/30/21 3 Weeks Ago History intramuscular oil ~11/09/21 Physical Exam Vital Signs and Narrative: Vital Signs: Last Vital Signs Temp 98.5 F 11/30/21 19:56 Pulse 84 11/30/21 19:56 Resp 18 11/30/21 19:56 BP 130/78 11/30/21 19:56 Pulse Ox 99 11/30/21 19:56 O2 Del Method 11/30/21 19:56 BMI result Body Mass Index 27.3 Const: General: cooperative and no acute distress Orientation/consciousness: patient oriented x3 Eyes: General: appearance normal, both eyes and all related structures Pupils: Equal, round and reactive pupils present Resp: Effort & Inspection: normal respiratory effort Auscultation: clear to auscultation bilaterally Cardio: Rate: regular rate Rhythm: regular rhythm GI: Palpation (GI): Soft to palpation Auscultation: normal bowel sounds Skin: General skin exam: no rashes or lesions noted Neuro: General: patient oriented x3 Cranial nerves: Yes Equal, round and reactive pupils present Cognition (Neuro): normal cognition Extrem: General: Yes normal to inspection and Yes no pedal edema Results Labs CBC and Chem 7: 11/30/21 15:14 11/30/21 15:14 Labs: Laboratory Results - last 24 hr 11/30/21 11/30/21 11/30/21 15:14 15:14 20:58 MCV 65.1 L MCH 16.4 L MCHC 25.1 L RDW 19.4 H Plt Count 492 H MPV 9.5 Immature Gran % (Auto) 0.5 H Neut % (Auto) 75.5 H Lymph % (Auto) 15.1 L [place] % (Auto) 7.6 Eos % (Auto) 0.9 Baso % (Auto) 0.4 Lymph # (Auto) 1.6 [place] # (Auto) 0.8 Eos # (Auto) 0.1 Baso # (Auto) 0.0 Abs Immat Gran (auto) 0.05 H Absolute Neuts (auto) 7.9 Absolute Nucleated RBC 0.000 Nucleated RBC % (auto) 0.0 Anion Gap 14 Estim Creat Clear Calc 120.2 Estimated GFR > 60 Random Glucose 102 Lactic Acid Calcium 9.3 Total Bilirubin 0.3 Direct Bilirubin < 0.2 AST 14 ALT 14 Alkaline Phosphatase 89 C-Reactive Protein 0.46 Total Protein 7.1 Albumin 4.3 Crossmatch See Detail 11/30/21 20:58 MCV MCH MCHC RDW Plt Count MPV Immature Gran % (Auto) Neut % (Auto) Lymph % (Auto) [place] % (Auto) Eos % (Auto) Baso % (Auto) Lymph # (Auto) [place] # (Auto) Eos # (Auto) Baso # (Auto) Abs Immat Gran (auto) Absolute Neuts (auto) Absolute Nucleated RBC Nucleated RBC % (auto) Anion Gap Estim Creat Clear Calc Estimated GFR Random Glucose Lactic Acid 1.0 Calcium Total Bilirubin Direct Bilirubin AST ALT Alkaline Phosphatase C-Reactive Protein Total Protein Albumin Crossmatch Assessment and Plan (1) IBD (inflammatory bowel disease): Status: Acute (2) Ulcerative colitis: Qualifiers: Ulcerative colitis location: unspecified ulcerative colitis location Status: Acute (3) Microcytic anemia: Status: Acute Plan 21-year-old male with past medical history of ulcerative colitis admitted to the hospital for further management # ulcerative colitis - GI wants patient to be on methylprednisolone- started 40 mg daily - GI consulted, with plan for colonoscopy on this admission - CT abd with IV and PO results as above # chronic microcytic anemia - appears to to be stable since August of this year - patient appears to be asymptomatic except for headache - patient receiving 1 unit of PRBC - follow CBC DVT ppx: Early ambulation Quality Stroke Does the patient have a stroke diagnosis?: No VTE Prior VTE?: No VTE Risk Level:: Medical - moderate - high VTE Device Contraindication: Treatment Not Indicated VTE Drug Contraindication: N/A - Med Ordered
[2021-11-30 21:30] LABS: Erythrocyte Sedimentation Rate 14 MM/HR (0-15)
--- NOTE | 2021-11-30 21:32 | PC.NURSE ---
blood cultures, covid swab and vl obtained per orders
[2021-11-30 21:34] VITALS: BP 152/74; PULSE 88; RESP 18; TEMP 37.2; O2SAT 99
[2021-11-30] MEDS: metroNIDAZOLE/NS 500 MG/100 ML PIGGYBACK 100 MG IV (21:36)
--- NOTE | 2021-11-30 21:44 | PC.NURSE ---
Pt BP slight elevated, pt abx are running as well as 2 bags of NS of 1000ml. will continue to monitor.
[2021-11-30 21:59] LABS: COVID-19 Test Negative (Negative)
--- NOTE | 2021-11-30 22:21 | PC.NURSE ---
second IV 29 G inserted on the RAC.
[2021-11-30] MEDS: iohexoL 350 MG/ML 100 ML INFUS..BTL IV (22:37)
[2021-11-30 22:44] VITALS: BP 137/75; PULSE 88; RESP 18; TEMP 37.2
[2021-11-30 23:00] VITALS: BP 137/64; BP 157/77; PULSE 88; PULSE 97; RESP 20; RESP 23; TEMP 37; TEMP 37.1
--- NOTE | 2021-11-30 23:00 | PC.NURSE ---
Pt was administered BLD transfusion, within the 15 mins of monitoring pt did not have any reaction to the RBC. Pt is on the telemetry and it appears NSR, and V/S are stable. Will continue to monitor.
[2021-11-30] MEDS: 0.9 % Sodium Chloride Flush 3 ML SYRINGE IVFLUSH (23:25)
[2021-11-30] MEDS: levoFLOXacin/D5W 500 MG/100 ML PIGGYBACK 100 MG IV (23:25)
[2021-12-01] VITALS (9 sets, daily range): BP systolic 125–148; BP diastolic 63–85; PULSE 75–100; RESP 15–33; TEMP 36.8–37.3; O2SAT 96–98
--- NOTE | 2021-12-01 01:50 | PC.NURSE ---
Pt V/S are within the normal limit, the telemetry shows Sinus tachy, although, pt tolerated the BLD transfusion with out any reaction. Pt girlfriend is at bedside. Pt was monitor accordingly. will continue to monitor.
[2021-12-01 06:31] LABS: MANUAL DIFF FLAG NO
[2021-12-01 06:37] LABS: Basophils Percent Auto 0.2 % (0-2); Eosinophils Percent Auto 0.1 % (0-4); Hematocrit 29.1 % (42.0-52.0); Hemoglobin 7.8 g/dl (14.0-18.0); Lymphocytes Absolute Auto 0.9 X10*3/uL (1.2-4.9); Lymphocytes Percent Auto 5.1 % (20-40); Mean Corpuscular HGB Conc 26.8 g/dl (31.0-36.0); Mean Corpuscular Hemoglobin 18.3 pg (27.0-33.0); Mean Corpuscular Volume 68.3 fL (80.0-98.0); Mean Platelet Volume 10.2 fL (9.4-12.4); Monocytes Absolute Auto 0.5 X10*3/uL (0.1-1.2); Monocytes Percent Auto 2.5 % (2-11); NRBC Pct Auto 0.6 /100WBC (0.0-0.2); Neutrophils Absolute Auto 15.8 x10*3/uL (2.0-8.3); Neutrophils Percent Auto 87.1 % (45-73); Platelet Count 492 X10*3/uL (160-400); Red Blood Count 4.26 X10*6/uL (4.60-5.80); Red Cell Distribution Width 22.6 % (11.0-16.0); White Blood Count 18.2 X10*3/uL (4.8-10.8)
[2021-12-01 06:52] LABS: Anion Gap 18 (12-20); Blood Urea Nitrogen 9 mg/dL (9-16); Calcium 9.3 mg/dL (8.4-10.2); Carbon Dioxide 20 mmol/L (22-29); Chloride 106 mmol/L (96-108); Creatinine Clr Calc Pharmacy 144.9; Estimated Glomerular Filt Rate > 60; Glucose Random 142 mg/dL (60-115); Potassium 4.8 mmol/L (3.3-5.1); Sodium 139 mmol/L (135-145)
--- NOTE | 2021-12-01 07:02 | PM.GICN ---
History of Present Illness Data of Consult Service Date: 12/01/21 Requesting physician: Christina Nolan Primary Care Provider: None Physician HPI Reason for consult: colitis and anemia 21-year-old male with past medical history of htn, testicular torsion, ulcerative colitis and non compliance who I am seeing for assessment for anemia and colitis patient was intially dx with UC up to transverse colon 2019, and was commenced on mesalamine, but there were issues with compliance and f/u. he reengaged with GI office here recently after long hiatus, labs revealed HGB around 6 g/dl so he was tranfused but hgb never really incremented. Plan was for entyvio, and short term use of budesonide in the interim the HGB has remained around 6 g/dl so he was admited for further work up He does now admit to having usually non bloody diarrhea stools although he thinks he may ahve seen some fresh blood few weeks back, but no abdominal pain, no nausea or vomiting, no urinary symptoms and no lower extremity edema Onl c/o headaches without any visual disturbances. also admits to exertional sob. labs: hemoglobin is 6.1 with hematocrit of 24.3, MCV of 65.1 Imaging: Abdomen pelvic CT shows mild murall prominences throughout much of the colon though this wall thickening does appear to be slightly decreased compared to 09/27 2021.? No acute findings otherwise Review of Systems Review of Systems: Constitutional : No Weight loss, No Fever, No Chills ENT/Mouth : No sore throat, No Rhinorrhea Eyes: No Swelling, No Redness Cardiovascular : No Chest Pain, + SOB, No Edema Respiratory : No Cough, No Sputum, No Wheezing Gastrointestinal : see HPI Genitourinary : NO Dysuria, No Urinary Frequency, No Hematuria, No Urgency Musculoskeletal : No joint pain, No Myalgias, No Joint Swelling Skin : No Skin Lesions, No rash Neuro : No Weakness, No Numbness, No Dizziness, No Headache Psych : No Anxiety/Panic, No Depression Heme/Lymph: No Bruising, No Lymphadenopathy Endocrine : No Polyuria, No Polydipsia All other systems reviewed and are negative. [facility] Past Medical History Medical History Anemia Ulcerative colitis Family History Family History Father HTN (hypertension) Surgical History Surgical History No pertinent past surgical history Social History Social History Alcohol intake: current Alcohol intake frequency: holidays/special occasions only Patient Tobacco Use Status: Never used Tobacco Use of substances other than those prescribed or required for medical reasons: No Advance Directives: No Advance Directives Information Provided: No Meds Allergies Allergy/AdvReac Type Severity Reaction Status Date / Time peas Allergy Mild hives Uncoded 09/27/21 13:54 Active Medications: Current Medications Acetaminophen (Acetaminophen 325 Mg Tablet) 650 mg PO Q6H PRN PRN Reason: Pain, Mild (Pain Scale 1-3) Docusate Sodium (Docusate Sodium 100 Mg Capsule) 100 mg PO DAILY PRN PRN Reason: Constipation Levofloxacin (Levaquin) 500 mg in 100 mls @ 100 mls/hr IV Q24H [facility] Last Infusion: 12/01/21 01:03 Dose: Infused Methylprednisolone Sodium Succinate (Methylprednisolone Sod Succ 40 Mg/Ml Vial) 40 mg IVPUSH Q24H JACQUI Ondansetron HCl (Ondansetron Hcl 4 Mg/2 Ml Vial) 4 mg IVPUSH Q8H PRN PRN Reason: Nausea and Vomiting Pharmacy Consult (Consult Rx Perform Med Rec) 1 each MISCELLANE ONCE PRN PRN Reason: Consult order Sodium Chloride (0.9 % Sodium Chloride Flush 3 Ml Syringe) 3 ml IVFLUSH QSHIFT [facility] Last Admin: 11/30/21 23:25 Dose: 3 ml Home Medications Medication Instructions Recorded Confirmed Last Taken Type testosterone cypionate 200 mg/mL 200 mg IM Q2W 09/27/21 11/30/21 3 Weeks Ago History intramuscular oil ~11/09/21 Physical Exam Vital Signs: Vital Signs: Last Vital Signs Temp 99.2 F 12/01/21 02:50 Pulse 75 12/01/21 04:00 Resp 27 H 12/01/21 04:00 BP 137/84 12/01/21 04:00 Pulse Ox 96 12/01/21 04:00 O2 Del Method 12/01/21 04:00 BMI result Body Mass Index 27.3 EXAM: GENERAL: The patient is well developed, pale VITAL SIGNS:see workflow HEENT: Nonicteric sclerae, PERRLA, EOMI. Oropharynx clear. Moist mucous membranes. Conjunctivae appear well perfused. No thyroid mass. CHEST: Chest wall is nontender. HEART: Regular rate and rhythm without murmurs. LUNGS: Clear to auscultation bilaterally. ABDOMEN: Soft, positive bowel sounds, nontender, no organomegaly.no flank tenderness SKIN: No rash, no excessive bruising, petechiae, or purpura. NEUROLOGIC: Cranial nerves II-XII intact without motor/sensory deficit. Psych: normal affect Results Labs CBC & Chem 7: 12/01/21 06:01 12/01/21 06:01 Labs: Short CBC 11/30/21 12/01/21 Range/Units 15:14 06:01 WBC 10.5 18.2 H (4.8-10.8) X10*3/uL Hgb 6.1 L* 7.8 L D (14.0-18.0) g/dl Hct 24.3 L 29.1 L (42.0-52.0) % Plt Count 492 H 492 H (160-400) X10*3/uL BMP 11/30/21 12/01/21 15:14 06:01 Sodium 140 139 Potassium 4.6 4.8 Chloride 105 106 Carbon Dioxide 26 20 L BUN 9 9 Creatinine 0.94 0.78 Calcium 9.3 9.3 Liver Function 11/30/21 Range/Units 15:14 Total Bilirubin 0.3 (0.0-1.0) mg/dL Direct Bilirubin < 0.2 (0.0-0.5) mg/dL AST 14 (5-37) U/L ALT 14 (0-40) U/L Alkaline Phosphatase 89 (39-117) U/L Albumin 4.3 (3.5-5.0) g/dL Imaging CT scan - abdomen: Attestation: I personally reviewed and interpreted this imaging study as follows: My impression: thickened colon, esophagus and stomach, stool noted, prosthetic testicles Assessment and Plan (1) IBD (inflammatory bowel disease): Status: Acute (2) Ulcerative colitis: Qualifiers: Ulcerative colitis location: unspecified ulcerative colitis location Status: Acute (3) Microcytic anemia: Status: Acute Plan 1/ Acute on chronic blood loss anemia, probably from active colitis, but need to r/o other causes such as PUD, gastritis, etc PLAN: 1/ Check iron levels and replace 2/ solumedrol IV 20 mg q8h for 48 hr 3/ being worked up for o/p entyvio hopefully will help in longer term if compliant 4/ pls give pneumovax vaccine in house before d/c 5/ plan for egd and colonoscopy tomorrow, can have clears today and colon prep tonight 6/ avoid nsaids Procedures Date of Service Date of Service: 12/01/21
--- NOTE | 2021-12-01 07:12 | PC.NURSE ---
pt resting quietly. VS within normal limits. pt girlfriend sleeping at bedside. pt denies no pain at this time
[2021-12-01] MEDS: 0.9 % Sodium Chloride Flush 3 ML SYRINGE IVFLUSH ×3 (08:17→23:35)
[2021-12-01] MEDS: methylPREDNISolone Sod Succ 40 MG/ML VIAL IVPUSH (08:17)
[2021-12-01 09:07] LABS: Ferritin 6 ng/mL (20-250)
[2021-12-01 09:16] LABS: Iron 389 mcg/dL (45-160); Unsaturated Iron Binding < 17 ug/dL
[2021-12-01 10:01] LABS: Folate 6.7 ng/mL (> or = 4.0); Vitamin B12 678 pg/mL (200-900)
--- NOTE | 2021-12-01 11:29 | MHC.CM.PN ---
pt is independent lives s/o cm intervention is not indicated
--- NOTE | 2021-12-01 15:05 | HO.PM.IMPN ---
Subjective Subjective Date of Service: 12/01/21 Interval History: ulcerative colitis Review of Systems has diarrahae Denies any chest pain or shortness of breath or fever or chills or cough or phlegm. Physical Exam Vital Signs: Vital Signs: Last Vital Signs Temp 98.6 F 12/01/21 14:59 Pulse 88 12/01/21 14:59 Resp 18 12/01/21 14:59 BP 125/73 12/01/21 14:59 Pulse Ox 97 12/01/21 14:59 O2 Del Method 12/01/21 14:59 BMI result Body Mass Index 27.3 Appearance: Alert.? Oriented X3.? not in distress.? cvs: rrr, [id number] , no murmur res: clear to auscultation ,no rhonchii or wheezing abd: no rebound or guarding ,nt, bs present. ext pulses present , no cyanosis . neuro: axo3 , nonfocal. Objective Data Active Medications Acetaminophen (Acetaminophen 325 Mg Tablet) 650 mg PO Q6H PRN PRN Reason: Pain, Mild (Pain Scale 1-3) Docusate Sodium (Docusate Sodium 100 Mg Capsule) 100 mg PO DAILY PRN PRN Reason: Constipation Levofloxacin (Levaquin) 500 mg in 100 mls @ 100 mls/hr IV Q24H [facility] Last Infusion: 12/01/21 01:03 Dose: 0 mls/hr Documented By: TERESA Methylprednisolone Sodium Succinate (Methylprednisolone Sod Succ 40 Mg/Ml Vial) 40 mg IVPUSH Q24H [facility] Last Admin: 12/01/21 08:17 Dose: 40 mg Documented By: KATHYA Non-Formulary Medication (Mesalamine [Apriso]) 1.5 gm PO QAM [facility] Non-Formulary Medication (Testosterone Cypionate) 200 mg IM Q2W [facility] Ondansetron HCl (Ondansetron Hcl 4 Mg/2 Ml Vial) 4 mg IVPUSH Q8H PRN PRN Reason: Nausea and Vomiting Pharmacy Consult (Consult Rx Perform Med Rec) 1 each MISCELLANE ONCE PRN PRN Reason: Consult order Polyethylene Glycol (Polyethylene Glycol 3350 17 Gm Powd.Pack) 238 gm PO ONCE@1830 [facility] Stop: 12/01/21 18:31 Sodium Chloride (0.9 % Sodium Chloride Flush 3 Ml Syringe) 3 ml IVFLUSH QSHIFT [facility] Last Admin: 12/01/21 08:17 Dose: 3 ml Documented By: KATHYA Labs CBC & Chem 7: 12/01/21 06:01 12/01/21 06:01 Labs: Laboratory Results - last 24 hr 11/30/21 11/30/21 11/30/21 15:14 15:14 15:14 MCV 65.1 L MCH 16.4 L MCHC 25.1 L RDW 19.4 H Plt Count 492 H MPV 9.5 Immature Gran % (Auto) 0.5 H Neut % (Auto) 75.5 H Lymph % (Auto) 15.1 L [place] % (Auto) 7.6 Eos % (Auto) 0.9 Baso % (Auto) 0.4 Lymph # (Auto) 1.6 [place] # (Auto) 0.8 Eos # (Auto) 0.1 Baso # (Auto) 0.0 Abs Immat Gran (auto) 0.05 H Absolute Neuts (auto) 7.9 Absolute Nucleated RBC 0.000 Nucleated RBC % (auto) 0.0 ESR 14 Anion Gap 14 Estim Creat Clear Calc 120.2 Estimated GFR > 60 Random Glucose 102 Lactic Acid Calcium 9.3 Iron TIBC % Saturation Unsat Iron Binding Ferritin Total Bilirubin 0.3 Direct Bilirubin < 0.2 AST 14 ALT 14 Alkaline Phosphatase 89 C-Reactive Protein 0.46 Total Protein 7.1 Albumin 4.3 Vitamin B12 Folate COVID-19 (CAROLINE) COVID-19 Clin Com Blood Type Antibody Screen Crossmatch 11/30/21 11/30/21 11/30/21 20:58 20:58 21:26 MCV MCH MCHC RDW Plt Count MPV Immature Gran % (Auto) Neut % (Auto) Lymph % (Auto) [place] % (Auto) Eos % (Auto) Baso % (Auto) Lymph # (Auto) [place] # (Auto) Eos # (Auto) Baso # (Auto) Abs Immat Gran (auto) Absolute Neuts (auto) Absolute Nucleated RBC Nucleated RBC % (auto) ESR Anion Gap Estim Creat Clear Calc Estimated GFR Random Glucose Lactic Acid 1.0 Calcium Iron TIBC % Saturation Unsat Iron Binding Ferritin Total Bilirubin Direct Bilirubin AST ALT Alkaline Phosphatase C-Reactive Protein Total Protein Albumin Vitamin B12 Folate COVID-19 (CAROLINE) Negative COVID-19 Clin Com See Note Blood Type A Positive Antibody Screen NEGATIVE Crossmatch See Detail 12/01/21 12/01/21 12/01/21 06:01 06:01 06:01 MCV 68.3 L MCH 18.3 L MCHC 26.8 L RDW 22.6 H Plt Count 492 H MPV 10.2 Immature Gran % (Auto) 5.0 H Neut % (Auto) 87.1 H Lymph % (Auto) 5.1 L [place] % (Auto) 2.5 Eos % (Auto) 0.1 Baso % (Auto) 0.2 Lymph # (Auto) 0.9 L [place] # (Auto) 0.5 Eos # (Auto) 0.0 Baso # (Auto) 0.0 Abs Immat Gran (auto) 0.90 H Absolute Neuts (auto) 15.8 H Absolute Nucleated RBC 0.110 H Nucleated RBC % (auto) 0.6 H ESR Anion Gap 18 Estim Creat Clear Calc 144.9 Estimated GFR > 60 Random Glucose 142 H D Lactic Acid Calcium 9.3 Iron 389 H TIBC < 406 % Saturation TNP Unsat Iron Binding < 17 Ferritin 6 L Total Bilirubin Direct Bilirubin AST ALT Alkaline Phosphatase C-Reactive Protein Total Protein Albumin Vitamin B12 678 Folate 6.7 COVID-19 (CAROLINE) COVID-19 Clin Com Blood Type Antibody Screen Crossmatch Assessment and Plan (1) Microcytic anemia: Status: Acute (2) IBD (inflammatory bowel disease): Status: Acute (3) Ulcerative colitis: Status: Acute Plan 21-year-old male with past medical history of ulcerative colitis admitted to the hospital for further management # ulcerative colitis started on methylprednisolone- started 40 mg daily - CT abd with IV and PO results as above plan for egd and colonoscopy tomorrow, can have clears today and colon prep tonight # chronic microcytic anemia - appears to to be stable since August of this year - patient appears to be asymptomatic except for headache - patient receiving 1 unit of PRBC, added iron supplements - follow CBC DVT ppx:? Early ambulation inpatient need: ulcerative colitis need iv steriods ,need colocnoscopy for further gi workup in am. Quality Stroke Does the patient have a stroke diagnosis?: No VTE Prior VTE?: No VTE Risk Level:: Medical - moderate - high VTE Device Contraindication: Treatment Not Indicated VTE Drug Contraindication: N/A - Med Ordered
[2021-12-01] MEDS: methylPREDNISolone Sod Succ 40 MG/ML VIAL 20 MG IVPUSH ×2 (16:18→23:35)
[2021-12-01] MEDS: Ferrous Sulfate 324 MG TABLET.DR PO (16:18)
[2021-12-01] MEDS: polyethylene glycoL 3350 17 GM POWD.PACK 238 GM PO (16:23)
[2021-12-01] MEDS: levoFLOXacin/D5W 500 MG/100 ML PIGGYBACK 100 MG IV (20:50)
--- NOTE | 2021-12-01 22:00 | PC.NURSE ---
Pt. resting comfortably in bed. Girlfriend at bedside. No complaints or pain at this time. Pt. currently working on colonoscopy prep and is aware that he is NPO at midnight
[2021-12-02] VITALS (12 sets, daily range): BP systolic 118–135; BP diastolic 51–72; PULSE 61–101; RESP 14–23; TEMP 36.2–36.9; O2SAT 97–100
--- NOTE | 2021-12-02 | PC.NURSE ---
Pt. now NPO. Still resting comfortably in bed and denying complaints
[2021-12-02 06:39] LABS: Hematocrit 31.2 % (42.0-52.0); Hemoglobin 8.2 g/dl (14.0-18.0); Mean Corpuscular HGB Conc 26.3 g/dl (31.0-36.0); Mean Corpuscular Volume 68.6 fL (80.0-98.0); Mean Platelet Volume 9.8 fL (9.4-12.4); NRBC Pct Auto 0.2 /100WBC (0.0-0.2); Platelet Count 555 X10*3/uL (160-400); Red Blood Count 4.55 X10*6/uL (4.60-5.80); Red Cell Distribution Width 22.2 % (11.0-16.0); White Blood Count 20.2 X10*3/uL (4.8-10.8)
[2021-12-02 07:02] LABS: Anion Gap 15 (12-20); Blood Urea Nitrogen 11 mg/dL (9-16); Calcium 9.9 mg/dL (8.4-10.2); Carbon Dioxide 26 mmol/L (22-29); Chloride 105 mmol/L (96-108); Creatinine Clr Calc Pharmacy 125.6; Estimated Glomerular Filt Rate > 60; Glucose Random 133 mg/dL (60-115); Potassium 5.3 mmol/L (3.3-5.1); Sodium 141 mmol/L (135-145)
--- NOTE | 2021-12-02 07:37 | PC.NURSE ---
Dr. Fritz instructed to hold ferrous sulfate.
[2021-12-02] MEDS: methylPREDNISolone Sod Succ 40 MG/ML VIAL 20 MG IVPUSH (07:45)
[2021-12-02] MEDS: 0.9 % Sodium Chloride Flush 3 ML SYRINGE IVFLUSH ×2 (07:47→19:57)
--- NOTE | 2021-12-02 11:23 | PC.NURSE ---
Pt denies any pain, dizziness, SOB, or nausea at this time. Awaiting procedure at 1600. Pt understands that he is NPO.
--- NOTE | 2021-12-02 14:05 | P.PNIM_ITS ---
Subjective Subjective Date of Service: 12/02/21 Interval History: ulcerative colitis Review of Systems has diarrhae Denies any chest pain or shortness of breath or fever or chills or cough or phlegm. Physical Exam Vital Signs: Vital Signs: Last Vital Signs Temp 97.2 F 12/02/21 11:34 Pulse 70 12/02/21 11:34 Resp 16 12/02/21 11:34 BP 129/64 12/02/21 11:34 Pulse Ox 99 12/02/21 11:34 O2 Del Method 12/02/21 11:34 BMI result Body Mass Index 27.3 Appearance: Alert.? Oriented X3.? not in distress.? cvs: rrr, [id number] , no murmur res: clear to auscultation ,no rhonchii or wheezing abd: no rebound or guarding ,nt, bs present. ext pulses present , no cyanosis . neuro: axo3 , nonfocal. Objective Data Active Medications Acetaminophen (Acetaminophen 325 Mg Tablet) 650 mg PO Q6H PRN PRN Reason: Pain, Mild (Pain Scale 1-3) Docusate Sodium (Docusate Sodium 100 Mg Capsule) 100 mg PO DAILY PRN PRN Reason: Constipation Ferrous Sulfate (Ferrous Sulfate 324 Mg Tablet.) 324 mg PO BIDWM [facility] Last Admin: 12/02/21 07:37 Dose: Not Given Documented By: KHALIF Non-Admin Reason: Physician Held Med Levofloxacin (Levaquin) 500 mg in 100 mls @ 100 mls/hr IV Q24H [facility] Last Infusion: 12/01/21 23:17 Dose: 0 mls/hr Documented By: ZEYAD Methylprednisolone Sodium Succinate (Methylprednisolone Sod Succ 40 Mg/Ml Vial) 20 mg IVPUSH Q8H [facility] Last Admin: 12/02/21 07:45 Dose: 20 mg Documented By: KHALIF Non-Formulary Medication (Mesalamine [Apriso]) 1.5 gm PO QAM [facility] Non-Formulary Medication (Testosterone Cypionate) 200 mg IM Q2W [facility] Ondansetron HCl (Ondansetron Hcl 4 Mg/2 Ml Vial) 4 mg IVPUSH Q8H PRN PRN Reason: Nausea and Vomiting Ondansetron HCl (Ondansetron Hcl 4 Mg/2 Ml Vial) 4 mg IVPUSH ONCE PRN PRN Reason: Nausea and Vomiting Pharmacy Consult (Consult Rx Perform Med Rec) 1 each MISCELLANE ONCE PRN PRN Reason: Consult order Sodium Chloride (0.9 % Sodium Chloride Flush 3 Ml Syringe) 3 ml IVFLUSH QSHIFT [facility] Last Admin: 12/02/21 07:47 Dose: 3 ml Documented By: KHALIF Labs CBC & Chem 7: 12/02/21 06:07 12/02/21 06:07 Labs: Laboratory Results - last 24 hr 12/02/21 12/02/21 06:07 06:07 MCV 68.6 L MCH 18.0 L MCHC 26.3 L RDW 22.2 H Plt Count 555 H MPV 9.8 Absolute Nucleated RBC 0.050 H Nucleated RBC % (auto) 0.2 Anion Gap 15 Estim Creat Clear Calc 125.6 Estimated GFR > 60 Random Glucose 133 H Calcium 9.9 D Microbiology Microbiology Results: Microbiology 11/30/21 20:58 Blood Culture - Preliminary Blood - Venous No growth after 24 hours. 11/30/21 20:58 Blood Culture - Preliminary Blood - Venous No growth after 24 hours. Assessment and Plan (1) Microcytic anemia: Status: Acute (2) Ulcerative colitis: Status: Acute Plan 21-year-old male with past medical history of ulcerative colitis admitted to the hospital for further management # ulcerative colitis started on methylprednisolone- started 40 mg daily - CT abd with IV and PO results as above plan for egd and colonoscopy today # chronic microcytic anemia - appears to to be stable since August of this year - patient appears to be asymptomatic except for headache - patient receiving 1 unit of PRBC, added iron supplements - follow CBC DVT ppx:? Early ambulation inpatient need: ulcerative colitis need iv steriods ,need colocnoscopy for fu rther gi workup. Quality Stroke Does the patient have a stroke diagnosis?: No VTE Prior VTE?: No VTE Risk Level:: Medical - moderate - high VTE Device Contraindication: Treatment Not Indicated VTE Drug Contraindication: N/A - Med Ordered
--- NOTE | 2021-12-02 15:24 | MHC.SHP ---
Pre-Procedural Eval Section A Date of Service: 12/02/21 The patient is an INPATIENT: Yes The History & Physical has been completed within 30 days and I have reviewed it.: Yes Section B Chief Complaint: ulcerative colitis Allergies: Allergies Allergy/AdvReac Type Severity Reaction Status Date / Time peas Allergy Mild hives Uncoded 09/27/21 13:54 Plan Diagnosis/Plan: Unchanged I have reviewed the history and physical and performed a pertinent physical examination on my patient. No changes have occurred unless specified. egd and colonoscopy
--- NOTE | 2021-12-02 15:25 | W.PM.OPN ---
Operative Note Operative Note Date of Service: 12/02/21 Narrative: Operative Information Procedure Description: EGD, Colonoscopy Indication: anemia and colitis Anesthesia: MAC FLEXIBLE TRANSORAL UPPER GASTROINTESTINAL ENDOSCOPY AND COLONOSCOPY PROCEDURE NOTE UPPER ENDOSCOPY Consent: Indications for the procedure and potential complications of bleeding, perforation, reaction to medications and missed diagnosis were discussed with the patient and informed consent was obtained. Instrument: Olympus GIF H 190 J mid size upper endoscope Monitoring: Vital signs and clinical assessment, continuous EKG monitoring, Pulse oximetry, Carbon Dioxide monitoring and blood pressure monitoring were done throughout the procedure. Procedure: The patient was placed in the left lateral decubitis position and pre-procedure medications were administered and a bite block was placed. The endoscope was inserted into the mouth and advanced under direct vision to the third part of duodenum. A careful inspection was made as the upper endoscope was withdrawn including a retroflexed examination of the proximal stomach; Findings and interventions are described below. Findings: Larynx:normal Esophagus: GE junction at 37 cm, diaphragm hiatus at 37 cm, normal mucosa, non obstructive schatzki ring noted. Stomach: Normal mucosa. Grade 2 flap valve on retroflexed examination of the cardia. Duodenum: Normal bulb and descending duodenum, bx taken Intervention: Biopsies as noted above COLONOSCOPY Instrument: Olympus variable stiffness pediatric scope 190L Colonoscopy Monitoring: Vital signs and clinical assessment, continuous EKG monitoring, Pulse oximetry, Carbon Dioxide monitoring and blood pressure monitoring were done throughout the procedure. Colon withdrawal time was 10 minutes. Procedure: The patient was placed in the left lateral decubitis position and pre-procedure medications were administered. After a digital rectal examination of the ano-rectum, the video colonoscope was inserted into the rectum and advanced through the colon to the cecum/TI. The colonoscope was slowly withdrawn in a retrograde panoramic fashion and the colon mucosa was carefully examined including a retroflexed view of the rectum. Findings and interventions are described below. Procedure Difficulty:easy Findings: Terminal Ileum-normal, bx taken Cecum: abnormal with friable mucosa, bleeding points, microabscesses and pseudopolyps, edema Ascending Colon: abnormal with friable mucosa, bleeding points, microabscesses and pseudopolyps, edema Transverse Colon -abnormal with friable mucosa, bleeding points, microabscesses and pseudopolyps, edema Descending Colon:abnormal with friable mucosa, bleeding points, microabscesses and pseudopolyps, edema Sigmoid Colon: abnormal with friable mucosa, bleeding points, microabscesses and pseudopolyps, edema Rectum:abnormal with friable mucosa, bleeding points, microabscesses and pseudopolyps, edema bx taken from right, left colon and rectum Anorectum - normal Colon preparation: [place] Bowel Preparation Scale Right colon; 1 Transverse colon: 1 Left colon; 1 (0 = Unprepared colon segment with mucosa not seen due to solid stool that cannot be cleared. 1 = Portion of mucosa of the colon segment seen, but other areas of the colon segment not well seen due to staining, residual stool and/or opaque liquid. 2 = Minor amount of residual staining, small fragments of stool and/or opaque liquid, but mucosa of colon segment seen well. 3 = Entire mucosa of colon segment seen well with no residual staining, small fragments of stool or opaque liquid) Impression and Post Procedure Diagnosis: Endoscopy Findings: schatzki ring Colonoscopy Findings: severe colitis, with friability and punctate bleeding points-worse than last time Plan: can convert to PO pred 40 mg with long taper follow up on original plan for entyvio IV iron infusions, stool sent for C diff and GI stool panel f/u on biopsy make sure no CMV superimposed Above findings were reviewed with the patient and relevant handouts were provided if indicated.
[2021-12-02] MEDS: Lactated Ringers 1,000 ML 50 ML IVCONT (15:49)
--- NOTE | 2021-12-02 16:16 | P.CONAN_ITS ---
HPI - Anesthesia Eval Consult details Narrative: 21M for egd colonoscopy PMFSH Active Problems Active Problems: All Active Problems (Updated 12/01/21 @ 06:24 by Christina Nolan MD) Microcytic anemia (Acute) IBD (inflammatory bowel disease) (Acute) Ulcerative colitis (Acute) Past Medical History Medical History Anemia Ulcerative colitis Family History Family History Father HTN (hypertension) Family history of problems with anesthesia: No Surgical History Surgical History No pertinent past surgical history History of Problems with Anesthesia: No Social History Social History Alcohol intake: current Alcohol intake frequency: does not drink Patient Tobacco Use Status: Never used Tobacco Use of substances other than those prescribed or required for medical reasons: No Are you DNR?: No Advance Directives: No Advance Directives Information Provided: No service: No Meds Allergies Allergy/AdvReac Type Severity Reaction Status Date / Time peas Allergy Mild hives Uncoded 09/27/21 13:54 Active Medications: Current Medications Acetaminophen (Acetaminophen 325 Mg Tablet) 650 mg PO Q6H PRN PRN Reason: Pain, Mild (Pain Scale 1-3) Docusate Sodium (Docusate Sodium 100 Mg Capsule) 100 mg PO DAILY PRN PRN Reason: Constipation Ferrous Sulfate (Ferrous Sulfate 324 Mg Tablet.Dr) 324 mg PO BIDWM [facility] Last Admin: 12/02/21 07:37 Dose: Not Given Levofloxacin (Levaquin) 500 mg in 100 mls @ 100 mls/hr IV Q24H [facility] Last Infusion: 12/01/21 23:17 Dose: Infused Lactated Ringer's (Lr) 1,000 mls @ 50 mls/hr IVCONT .Q20H [facility] Last Admin: 12/02/21 15:49 Dose: 50 mls/hr Methylprednisolone Sodium Succinate (Methylprednisolone Sod Succ 40 Mg/Ml Vial) 20 mg IVPUSH Q8H [facility] Last Admin: 12/02/21 07:45 Dose: 20 mg Non-Formulary Medication (Mesalamine [Apriso]) 1.5 gm PO QAM [facility] Non-Formulary Medication (Testosterone Cypionate) 200 mg IM Q2W [facility] Ondansetron HCl (Ondansetron Hcl 4 Mg/2 Ml Vial) 4 mg IVPUSH Q8H PRN PRN Reason: Nausea and Vomiting Ondansetron HCl (Ondansetron Hcl 4 Mg/2 Ml Vial) 4 mg IVPUSH ONCE PRN PRN Reason: Nausea and Vomiting Pharmacy Consult (Consult Rx Perform Med Rec) 1 each MISCELLANE ONCE PRN PRN Reason: Consult order Sodium Chloride (0.9 % Sodium Chloride Flush 3 Ml Syringe) 3 ml IVFLUSH QSHIFT [facility] Last Admin: 12/02/21 07:47 Dose: 3 ml Home Medications Medication Instructions Recorded Confirmed Last Taken Type testosterone cypionate 200 mg/mL 200 mg IM Q2W 09/27/21 11/30/21 3 Weeks Ago History intramuscular oil ~11/09/21 Exam Exam Date and Time: December 02, 2021 161 Height,Weight and Vital Signs: Height 5 ft 8 in Weight 180 lb Last Vital Signs Temp 98 F 12/02/21 15:08 Pulse 65 12/02/21 15:08 Resp 16 12/02/21 15:08 BP 125/72 12/02/21 15:08 Pulse Ox 100 12/02/21 15:08 O2 Del Method 12/02/21 15:08 Pertinent Lab Results Pertinent Lab Results: Laboratory Tests 11/30/21 11/30/21 11/30/21 15:14 15:14 15:14 WBC 10.5 RBC 3.73 L Hgb 6.1 L* Hct 24.3 L MCV 65.1 L MCH 16.4 L MCHC 25.1 L RDW 19.4 H Plt Count 492 H MPV 9.5 Immature Gran % (Auto) 0.5 H Neut % (Auto) 75.5 H Lymph % (Auto) 15.1 L [place] % (Auto) 7.6 Eos % (Auto) 0.9 Baso % (Auto) 0.4 Lymph # (Auto) 1.6 [place] # (Auto) 0.8 Eos # (Auto) 0.1 Baso # (Auto) 0.0 Abs Immat Gran (auto) 0.05 H Absolute Neuts (auto) 7.9 Absolute Nucleated RBC 0.000 Nucleated RBC % (auto) 0.0 ESR 14 Sodium 140 Potassium 4.6 Chloride 105 Carbon Dioxide 26 Anion Gap 14 BUN 9 Creatinine 0.94 Estim Creat Clear Calc 120.2 Estimated GFR > 60 Random Glucose 102 Lactic Acid Calcium 9.3 Iron TIBC % Saturation Unsat Iron Binding Ferritin Total Bilirubin 0.3 Direct Bilirubin < 0.2 AST 14 ALT 14 Alkaline Phosphatase 89 C-Reactive Protein 0.46 Total Protein 7.1 Albumin 4.3 Vitamin B12 Folate COVID-19 ([facility]) COVID-19 Clin Com Blood Type Antibody Screen Crossmatch 11/30/21 11/30/21 11/30/21 20:58 20:58 21:26 WBC RBC Hgb Hct MCV MCH MCHC RDW Plt Count MPV Immature Gran % (Auto) Neut % (Auto) Lymph % (Auto) [place] % (Auto) Eos % (Auto) Baso % (Auto) Lymph # (Auto) [place] # (Auto) Eos # (Auto) Baso # (Auto) Abs Immat Gran (auto) Absolute Neuts (auto) Absolute Nucleated RBC Nucleated RBC % (auto) ESR Sodium Potassium Chloride Carbon Dioxide Anion Gap BUN Creatinine Estim Creat Clear Calc Estimated GFR Random Glucose Lactic Acid 1.0 Calcium Iron TIBC % Saturation Unsat Iron Binding Ferritin Total Bilirubin Direct Bilirubin AST ALT Alkaline Phosphatase C-Reactive Protein Total Protein Albumin Vitamin B12 Folate COVID-19 ([facility]) Negative COVID-19 Clin Com See Note Blood Type A Positive Antibody Screen NEGATIVE Crossmatch See Detail 12/01/21 12/01/21 12/01/21 06:01 06:01 06:01 WBC 18.2 H RBC 4.26 L Hgb 7.8 L D Hct 29.1 L MCV 68.3 L MCH 18.3 L MCHC 26.8 L RDW 22.6 H Plt Count 492 H MPV 10.2 Immature Gran % (Auto) 5.0 H Neut % (Auto) 87.1 H Lymph % (Auto) 5.1 L [place] % (Auto) 2.5 Eos % (Auto) 0.1 Baso % (Auto) 0.2 Lymph # (Auto) 0.9 L [place] # (Auto) 0.5 Eos # (Auto) 0.0 Baso # (Auto) 0.0 Abs Immat Gran (auto) 0.90 H Absolute Neuts (auto) 15.8 H Absolute Nucleated RBC 0.110 H Nucleated RBC % (auto) 0.6 H ESR Sodium 139 Potassium 4.8 Chloride 106 Carbon Dioxide 20 L Anion Gap 18 BUN 9 Creatinine 0.78 Estim Creat Clear Calc 144.9 Estimated GFR > 60 Random Glucose 142 H D Lactic Acid Calcium 9.3 Iron 389 H TIBC < 406 % Saturation TNP Unsat Iron Binding < 17 Ferritin 6 L Total Bilirubin Direct Bilirubin AST ALT Alkaline Phosphatase C-Reactive Protein Total Protein Albumin Vitamin B12 678 Folate 6.7 COVID-19 ([facility]) COVID-19 [employer] Com Blood Type Antibody Screen Crossmatch 12/02/21 12/02/21 06:07 06:07 WBC 20.2 H RBC 4.55 L Hgb 8.2 L Hct 31.2 L MCV 68.6 L MCH 18.0 L MCHC 26.3 L RDW 22.2 H Plt Count 555 H MPV 9.8 Immature Gran % (Auto) Neut % (Auto) Lymph % (Auto) [place] % (Auto) Eos % (Auto) Baso % (Auto) Lymph # (Auto) [place] # (Auto) Eos # (Auto) Baso # (Auto) Abs Immat Gran (auto) Absolute Neuts (auto) Absolute Nucleated RBC 0.050 H Nucleated RBC % (auto) 0.2 ESR Sodium 141 Potassium 5.3 H Chloride 105 Carbon Dioxide 26 Anion Gap 15 BUN 11 Creatinine 0.90 Estim Creat Clear Calc 125.6 Estimated GFR > 60 Random Glucose 133 H Lactic Acid Calcium 9.9 D Iron TIBC % Saturation Unsat Iron Binding Ferritin Total Bilirubin Direct Bilirubin AST ALT Alkaline Phosphatase C-Reactive Protein Total Protein Albumin Vitamin B12 Folate COVID-19 ([facility]) COVID-19 Clin Com Blood Type Antibody Screen Crossmatch Airway Mallampati Class: I TM Dist: >3cm Neck ROM: Full Loose/Missing/Broken Teeth: No Assessment and Plan Assessment Anesthesia Assessment: Anesthesia Plan Discussed and Chart Reviewed Final Anesthetic Review Family History of Problems with Anesthesia: No History of Problems with Anesthesia: No NPO: Yes ASA Class: III Final Preanesthetic Review: No Changes in Pt Med Stat, Meds/Allgs Chart Reviewed, Consent Obtained/Reviewed and Anes Risks/Benef Reviewed Patient Risk: Intermediate Procedure Risk: Low Anesthetic Plan Anesthetic Plan: MAC: Disposition: Standard PACU
--- NOTE | 2021-12-02 17:10 | PC.NURSE ---
report from Cassy MCGOVERN. patient currently off unit at short stay
[2021-12-02 18:10] LABS: CDiff Gene PCR NEGATIVE (Negative)
[2021-12-02] MEDS: Ferrous Sulfate 324 MG TABLET.DR PO (19:55)
[2021-12-02] MEDS: vancomycin HCL 125 MG CAPSULE PO (19:55)
[2021-12-03] VITALS: BP 133/61; PULSE 83; RESP 16; TEMP 36.6; O2SAT 97
[2021-12-03] MEDS: methylPREDNISolone Sod Succ 40 MG/ML VIAL 20 MG IVPUSH ×2 (00:03→08:07)
[2021-12-03] MEDS: vancomycin HCL 125 MG CAPSULE PO ×3 (00:03→12:48)
[2021-12-03 03:51] VITALS: BP 133/71; PULSE 68; RESP 16; TEMP 36.1; O2SAT 98
[2021-12-03 07:30] VITALS: BP 131/65; PULSE 54; RESP 18; TEMP 36.2; O2SAT 99
[2021-12-03] MEDS: 0.9 % Sodium Chloride Flush 3 ML SYRINGE IVFLUSH (08:08)
[2021-12-03] MEDS: Ferrous Sulfate 324 MG TABLET.DR PO (08:08)
[2021-12-03] MEDS: Sodium Zirconium Cyclosilicate 5 GM POWD.PACK PO (08:41)
[2021-12-03 09:18] LABS: Hemoglobin 8.2 g/dl (14.0-18.0); Mean Corpuscular HGB Conc 26.5 g/dl (31.0-36.0); Mean Corpuscular Hemoglobin 18.5 pg (27.0-33.0); Mean Corpuscular Volume 69.8 fL (80.0-98.0); Mean Platelet Volume 10.3 fL (9.4-12.4); NRBC Pct Auto 0.1 /100WBC (0.0-0.2); Platelet Count 550 X10*3/uL (160-400); Red Blood Count 4.44 X10*6/uL (4.60-5.80); Red Cell Distribution Width 23.7 % (11.0-16.0)
[2021-12-03 09:43] LABS: Anion Gap 15 (12-20); Blood Urea Nitrogen 15 mg/dL (9-16); Calcium 9.2 mg/dL (8.4-10.2); Carbon Dioxide 26 mmol/L (22-29); Chloride 102 mmol/L (96-108); Creatinine Clr Calc Pharmacy 137.8; Estimated Glomerular Filt Rate > 60; Glucose Random 114 mg/dL (60-115); Potassium 5.3 mmol/L (3.3-5.1); Sodium 138 mmol/L (135-145)
[2021-12-03 10:18] LABS: Campylobacter Not Detected (Not Detect.); E. coli EAEC Not Detected (Not Detect.); E. coli EPEC Not Detected (Not Detect.); E. coli ETEC Not Detected (Not Detect.); E. coli STEC Not Detected (Not Detect.); Plesiomonas shigelloides Not Detected (Not Detect.); Salmonella Not Detected (Not Detect.); Vibrio Not Detected (Not Detect.); Vibrio Cholerae Not Detected (Not Detect.); Yersinia enterocolitica Not Detected (Not Detect.)
[2021-12-03 10:19] LABS: Adenovirus F 40/41 Not Detected (Not Detect.); Astrovirus Not Detected (Not Detect.); Cryptosporidium Not Detected (Not Detect.); Cyclospora cayetanensis Not Detected (Not Detect.); Entamoeba histolytica Not Detected (Not Detect.); Giardia lamblia Not Detected (Not Detect.); Norovirus GI/GII Not Detected (Not Detect.); Rotavirus A Not Detected (Not Detect.); Sapovirus Not Detected (Not Detect.); Shigella sp./EIEC Not Detected (Not Detect.)
[2021-12-03] MEDS: Iron Sucrose Complex 200 MG in 0.9 % Sodium Chloride 100 ML 440 MG IV (11:05)
[2021-12-03 12:00] VITALS: BP 135/70; PULSE 63; RESP 18; TEMP 36.3; O2SAT 97
--- NOTE | 2021-12-03 12:12 | MHC.CM.PN ---
PATIENT IS DC HOME TODAY - NO SERVICES
--- NOTE | 2021-12-03 12:13 | P.DS_ITS ---
DS: Providers Provider Date of Service: 12/03/21 Date of admission: 11/30/21 21:21 Primary care physician: None Physician Consults: 11/30/21 21:20 Consult to Gastroenterology Routine Consulting Provider: Ling Fritz Reason for consultation: UC Has provider been notified: Yes Attending physician on discharge: Destiny Ventura Discharging clinician: Destiny Ventura DS: Diagnosis Discharge Diagnosis (1) Microcytic anemia: Status: Acute (2) Ulcerative colitis: Status: Acute DS: Summary Hospital Course Hospital Course: 21-year-old male with past medical history of ulcerative colitis sent to the hospital from his GI doctor for workup of possible ulcerative colitis flare.? Patient reports that he has been having diarrhea that is non watery, constant, with no evidence of blood.? Denies any abdominal pain, he reports that he has been having headaches with no chest pain dizziness, no shortness of breath.? Reports no abdominal pain at this time, no nausea or vomiting, no urinary symptoms and no lower extremity edema.? GI wanted patient to be admitted for colonoscopy, methylprednisolone, and blood transfusion given his up patient lab workup showed hemoglobin of 6.7.? Vitals arrival to the ED stable Today's hemoglobin is 6.1 with hematocrit of 24.3, MCV of 65.1, labs otherwise unremarkable Abdomen pelvic CT shows mild neural prominences throughout much of the colon though this wall thickening does appear to be slightly decreased compared to 09/27 2021.? No acute findings otherwise Patient start on methylprednisone and will be admitted for further management. Hospital course: Patient was admitted for ulcerative colitis possible flare-started on IV steroids seems to be improving, in addition patient had colonoscopy has colitis changes and biopsy sent. C diff is negative but stool studies and pathology pending. Blood cultures are negative Discussed with the GI patient will go home on p.o. steroids per long taper(patient was advised to hold budesonide until on prednisone taper) as well as antibiotics. Patient is to follow-up with GI out patiently-further steroid use as per GI. Chronic microcytic anemia hemoglobin is stable around 8: Received IV iron.added po iron and omeprazole upon discharge. mild hyperkalemia : advised low potassium diet, given loklema limited supply- repeat bmp outpatient with pcp. Monitor CBC and bmp out patiently Follow-up with GI outpatient. Above management discussed with the patient in detail length he understand and in agreement with the above plan, time spent 50 minutes and 50% time spent on counseling. Significant findings: As above. Procedures performed: None. Treatment and response: As above. Complications: None. Time Spent with Patient Time attestation: Total time spent providing and/or coordinating discharge services: Discharge coordination time: Greater than 30 minutes Quality: Safe Use of Opioids Does Pt have an Active Cancer Diagnosis on the Problem List?: No Quality: Stroke Does the patient have a stroke diagnosis?: No Physical Exam Vital Signs: Vital Signs: Last Vital Signs Temp 97.4 F 12/03/21 12:00 Pulse 63 12/03/21 12:00 Resp 18 12/03/21 12:00 BP 135/70 12/03/21 12:00 Pulse Ox 97 12/03/21 12:00 O2 Del Method 12/03/21 12:00 BMI result Body Mass Index 27.3 Appearance: Alert.? Oriented X3.? not in distress.? cvs: rrr, [id number] , no murmur res: clear to auscultation ,no rhonchii or wheezing abd: no rebound or guarding ,nt, bs present. ext pulses present , no cyanosis . neuro: axo3 , nonfocal. DS: Data Data Completed and Pending Pending studies at discharge: Pending at discharge 12/02/21 16:05 Surgical [PTH] Routine Labs on day of discharge: Laboratory Results - last 24 hr 12/02/21 12/02/21 12/03/21 16:40 16:40 08:15 WBC RBC Hgb Hct MCV MCH MCHC RDW Plt Count MPV Absolute Nucleated RBC Nucleated RBC % (auto) Sodium 138 Potassium 5.3 H Chloride 102 Carbon Dioxide 26 Anion Gap 15 BUN 15 Creatinine 0.82 Estim Creat Clear Calc 137.8 Estimated GFR > 60 Random Glucose 114 Calcium 9.2 D Stl C. cayetanensis PCR Not Detected Stool Rotavirus A PCR Not Detected Stl Adenov F 40/41 PCR Not Detected Stool Astrovirus (PCR) Not Detected Stool Campylobacter PCR Not Detected Stool Cryptosporidium PCR Not Detected Stl Sh Tox Pr E STEC PCR Not Detected Stool E coli O157 PCR Not applicable Stl Enterotoxigenic E PCR Not Detected Stool EPEC (PCR) Not Detected Stool EAEC (PCR) Not Detected Stl E. histolytica PCR Not Detected Stool Giardia Lamblia PCR Not Detected Stl P. shigelloides PCR Not Detected Stool Salmonella PCR Not Detected Stool Sapovirus (PCR) Not Detected Stl Shigella/EIEC PCR Not Detected St Y.enterocolitica PCR Not Detected Stool Vibrio (PCR) Not Detected Stl Vibrio cholerae PCR Not Detected Stl Norovirus GI/GII PCR Not Detected C. difficile Tox B Gene NEGATIVE 12/03/21 08:15 WBC 16.0 H RBC 4.44 L Hgb 8.2 L Hct 31.0 L MCV 69.8 L MCH 18.5 L MCHC 26.5 L RDW 23.7 H Plt Count 550 H MPV 10.3 Absolute Nucleated RBC 0.020 H Nucleated RBC % (auto) 0.1 Sodium Potassium Chloride Carbon Dioxide Anion Gap BUN Creatinine Estim Creat Clear Calc Estimated GFR Random Glucose Calcium Stl C. cayetanensis PCR Stool Rotavirus A PCR Stl Adenov F 40/41 PCR Stool Astrovirus (PCR) Stool Campylobacter PCR Stool Cryptosporidium PCR Stl Sh Tox Pr E STEC PCR Stool E coli O157 PCR Stl Enterotoxigenic E PCR Stool EPEC (PCR) Stool EAEC (PCR) Stl E. histolytica PCR Stool Giardia Lamblia PCR Stl P. shigelloides PCR Stool Salmonella PCR Stool Sapovirus (PCR) Stl Shigella/EIEC PCR St Y.enterocolitica PCR Stool Vibrio (PCR) Stl Vibrio cholerae PCR Stl Norovirus GI/GII PCR C. difficile Tox B Gene Preliminary micro results at discharge 11/30/21 20:58 Blood Culture - Preliminary Blood - Venous No growth after 48 hours. 11/30/21 20:58 Blood Culture - Preliminary Blood - Venous No growth after 48 hours. Additional Comments Additional comments: CT/CT abdomen pelvis w IV con IMPRESSION: Mild mural prominence throughout much of the colon, though this wall thickening does appear to be slightly decreased compared to 09/27/2021. No new acute findings identified. Multiple scattered subcentimeter lymph nodes are also similar to prior. Discharge Plan Discharge Anticipated Discharge Date/Time: 12/03/21 11:52 Patient Disposition: Home, Self-Care Discharge Diagnosis: ulcerative colitis , mild hyperkalemia Referrals: Physician,None [Primary Care Provider] - 1 Week Discharge Medications: New prednisone 10 mg tablet See Taper PO DAILY Qty: 70 0RF Taper: Prednisone 40 mg daily for 7 Days and 0 Hour 30 mg daily for 7 Days and 0 Hour 20 mg daily for 7 Days and 0 Hour 10 mg daily for 7 Days and 0 Hour Rx Instructions: after taper please start on budesonide. please follow up with GI within 4 weeks. levofloxacin 500 mg tablet 500 mg PO DAILY Qty: 5 0RF metronidazole 500 mg tablet 500 mg PO BID Qty: 10 0RF ferrous sulfate 324 mg (65 mg iron) Tablet,Delayed Release (Dr/Ec) 324 mg PO BIDWM Qty: 60 0RF omeprazole 20 mg capsule,delayed release(DR/EC) 20 mg PO DAILY Qty: 30 0RF Lokelma 5 gram powder in packet 5 g PO Q OTHER DAY Qty: 2 0RF Continued testosterone cypionate 200 mg/mL oil 200 mg IM Q2W mesalamine [Apriso] 0.375 gram capsule,extended release 24hr 1.5 g PO QAM Qty: 112 5RF Held budesonide 3 mg capsule,delayed,extend.release 9 mg PO DAILY Qty: 90 2RF Hold Instructions: Resume on 01/19/22. Discharge Orders: Discharge Order (Routine); Ordered 12/03/21 Ordered By: Destiny Ventura Diet: Advance to usual diet Activity on Discharge: As tolerated Stand Alone Forms: Patient Portal Discharge page Care Plan Goals: Patient was admitted for ulcerative colitis possible flare-started on IV steroi ds seems to be improving, in addition patient had colonoscopy has colitis changes and biopsy sent. C diff is negative but stool studies pending. Blood cultures are negative Discussed with the GI patient will go home on p.o. steroids per long taper(patient was advised to hold budesonide until on prednisone taper) as well as antibiotics. Patient is to follow-up with GI out patiently-further steroid use as per GI. Chronic microcytic anemia hemoglobin is stable around 8: Received IV iron.added po iron and omeprazole upon discharge. Monitor CBC and bmp out patiently Follow-up with PCP outpatient. Health Concerns: As above. Plan of Treatment: complete course of antibiotic and steroid. Monitor CBC outpatient further management outpatient as per PCP. Assessment: As above. Patient Instructions: Ulcerative Colitis (DC), Anemia (DC)
[2021-12-03] MEDS: levoFLOXacin 500 MG TABLET PO (12:48)
[2021-12-03] MEDS: Sodium Zirconium Cyclosilicate 10 GM POWD.PACK PO (12:48)
[2021-12-03] MEDS: metroNIDAZOLE 500 MG TABLET PO (12:48)
--- NOTE | 2021-12-03 14:39 | P.PNGI_ITS ---
Subjective Subjective Date of Service: 12/03/21 Interval History: No diarrhea with steroids no abdominal pain no blood seen in stool reviewed colonoscopy results with him, severe disease, awaiting insurance approval for [facility] Critical Care Time (minutes): 0 Physical Exam Vital Signs: Vital Signs: Last Vital Signs Temp 97.4 F 12/03/21 12:00 Pulse 63 12/03/21 12:00 Resp 18 12/03/21 12:00 BP 135/70 12/03/21 12:00 Pulse Ox 97 12/03/21 12:00 O2 Del Method 12/03/21 12:00 BMI result Body Mass Index 27.3 EXAM: GENERAL: The patient is well developed and nontoxic, pallor VITAL SIGNS:see workflow HEENT: Nonicteric sclerae, PERRLA, EOMI. Oropharynx clear. Moist mucous membranes. Conjunctivae pale. No thyroid mass. CHEST: Chest wall is nontender. HEART: Regular rate and rhythm without murmurs. LUNGS: Clear to auscultation bilaterally. ABDOMEN: Soft, positive bowel sounds, nontender, no organomegaly.no flank tenderness SKIN: No rash, no excessive bruising, petechiae, or purpura. NEUROLOGIC: Cranial nerves II-XII intact without motor/sensory deficit. psych- normal Objective Data Labs CBC & Chem 7: 12/03/21 08:15 12/03/21 08:15 Labs: Laboratory Results - last 24 hr 12/02/21 12/02/21 12/03/21 16:40 16:40 08:15 WBC RBC Hgb Hct MCV MCH MCHC RDW Plt Count MPV Absolute Nucleated RBC Nucleated RBC % (auto) Sodium 138 Potassium 5.3 H Chloride 102 Carbon Dioxide 26 Anion Gap 15 BUN 15 Creatinine 0.82 Estim Creat Clear Calc 137.8 Estimated GFR > 60 Random Glucose 114 Calcium 9.2 D Stl C. cayetanensis PCR Not Detected Stool Rotavirus A PCR Not Detected Stl Adenov F 40/41 PCR Not Detected Stool Astrovirus (PCR) Not Detected Stool Campylobacter PCR Not Detected Stool Cryptosporidium PCR Not Detected Stl Sh Tox Pr E STEC PCR Not Detected Stool E coli O157 PCR Not applicable Stl Enterotoxigenic E PCR Not Detected Stool EPEC (PCR) Not Detected Stool EAEC (PCR) Not Detected Stl E. histolytica PCR Not Detected Stool Giardia Lamblia PCR Not Detected Stl P. shigelloides PCR Not Detected Stool Salmonella PCR Not Detected Stool Sapovirus (PCR) Not Detected Stl Shigella/EIEC PCR Not Detected St Y.enterocolitica PCR Not Detected Stool Vibrio (PCR) Not Detected Stl Vibrio cholerae PCR Not Detected Stl Norovirus GI/GII PCR Not Detected C. difficile Tox B Gene NEGATIVE 12/03/21 08:15 WBC 16.0 H RBC 4.44 L Hgb 8.2 L Hct 31.0 L MCV 69.8 L MCH 18.5 L MCHC 26.5 L RDW 23.7 H Plt Count 550 H MPV 10.3 Absolute Nucleated RBC 0.020 H Nucleated RBC % (auto) 0.1 Sodium Potassium Chloride Carbon Dioxide Anion Gap BUN Creatinine Estim Creat Clear Calc Estimated GFR Random Glucose Calcium Stl C. cayetanensis PCR Stool Rotavirus A PCR Stl Adenov F 40/41 PCR Stool Astrovirus (PCR) Stool Campylobacter PCR Stool Cryptosporidium PCR Stl Sh Tox Pr E STEC PCR Stool E coli O157 PCR Stl Enterotoxigenic E PCR Stool EPEC (PCR) Stool EAEC (PCR) Stl E. histolytica PCR Stool Giardia Lamblia PCR Stl P. shigelloides PCR Stool Salmonella PCR Stool Sapovirus (PCR) Stl Shigella/EIEC PCR St Y.enterocolitica PCR Stool Vibrio (PCR) Stl Vibrio cholerae PCR Stl Norovirus GI/GII PCR C. difficile Tox B Gene Microbiology Microbiology Results: Microbiology 11/30/21 20:58 Blood - Venous Blood Culture - Preliminary No growth after 48 hours. 11/30/21 20:58 Blood - Venous Blood Culture - Preliminary No growth after 48 hours. Procedures Date of Service Date of Service: 12/03/21 Progress Note: A&P Assessment and plan (1) Ulcerative colitis: Status: Acute (2) Microcytic anemia: Status: Acute Plan 1/ Miguel colitis with severe disease, stable H/H. Awaiting entyvio approval by insurance PLAN: 1/ can d/c home with long steroid taper 2/ d/c with iron meds 3/ hold budesonide since will be on prednisone 4/ pneumovax before d/c 5/ o/p biologic, hopefully entyvio will be approved, otherwise may be another agent like remicade or biosimilar. Time Spent With Patient Time: Total time spent is greater than 50% in coordination of care (as documented) at patient's floor/unit and/or counseling patient: Quality Stroke Does the patient have a stroke diagnosis?: No VTE Prior VTE?: No VTE Risk Level:: Medical - moderate - high VTE Device Contraindication: Treatment Not Indicated VTE Drug Contraindication: N/A - Med Ordered
== END 2021-12-03 14:55 | disposition home or self-care (01) | DRG 245 ==
LOC: HO.ED 20:33 → HO.EDOVER 21:35 → HO.S3 12-02 19:12
PROVIDERS: Internal Medicine Gastroenterology; Admitting Provider Internal Medicine; Emergency Provider Emergency Medicine; Visit Provider Internal Medicine
PROC: 0DB98ZX Excision of Duodenum, Via Natural or Artificial Opening Endoscopic, Diagnostic (ICD-10-PCS; principal; 2021-12-02 16:00)
DX: K51.914 Ulcerative colitis, unspecified with abscess (principal); D62 Acute posthemorrhagic anemia; E87.5 Hyperkalemia; Z20.822 Contact with and (suspected) exposure to COVID-19; Z91.14 Patient's other noncompliance with medication regimen; Z79.1 Long term (current) use of non-steroidal anti-inflammatories (NSAID); Z79.899 Other long term (current) drug therapy
CPT/HCPCS: 36415; 74177; 80048; 80076; 82607; 82728; 82746; 83540; 83605; 85025; 85027; 85652; 86140; 86850; 86900; 86901; 86923; 87040; 87493; 87507; 87635; 88305; 90677; 99285; J1756; J1956; J2920; J2930; P9016; Q9967

== ENCOUNTER 2021-12-22 11:07 | Outpatient (REF) | payer OTHER, SELFPAY | END 2021-12-22 11:08 | disposition home or self-care (01) | LOC: HO.MDS 11:07 | PROVIDERS: Visit Provider Internal Medicine Gastroenterology | DX: K51.90 Ulcerative colitis, unspecified, without complications (principal) | CPT/HCPCS: 96365; J3380 ==

== ENCOUNTER 2022-12-05 14:53 | Outpatient (REF) | payer OTHER, SELFPAY ==
[2022-12-10 05:33] LABS: Dihydrotestosterone 26 ng/dL (12-65)
[2022-12-10 10:08] LABS: Testosterone, Free 122.9 pg/mL (35.0-155.0); Testosterone, Total 480 ng/dL (250-1100)
== END 2022-12-05 14:54 | disposition home or self-care (01) ==
LOC: HO.LAB 14:53
PROVIDERS: Visit Provider Internal Medicine Endocrinology, Diabetes & Metabolism
DX: E29.1 Testicular hypofunction (principal); R94.5 Abnormal results of liver function studies
CPT/HCPCS: 36415; 80053; 80061; 82642; 84402; 84403; 84439; 84443; 85025; 86376